=== PATIENT | male | born 1930 | race Caucasian/White ===

== ENCOUNTER 2017-01-19 12:45 | Observation (INO) | payer MEDICARE, OTHER ==
--- NOTE | 2017-01-19 12:57 | EDM.PDOC ---
ED HPI GENERAL MEDICAL PROBLEM - General Chief Complaint: Chest Pain Stated Complaint: chest pain Time Seen by Provider: 01/19/17 12:45 Source of Information: Reports: Patient, Long-Term Records History Limitations: Reports: No Limitations - History of Present Illness INITIAL COMMENTS - FREE TEXT/NARRATIVE: 86 YO WM presents to ER from assisted living facility with complaints of 2 day history of intermittent chest pain. Pt reports he currently is with chest pain but woke this am with approximately 4 episodes of diarrhea and feels generally weak. Pt was sent from [facility] for further evaluation and treatment. Pt denies associated shortness of breath, dizziness, nausea/vomiting or diaphoresis. Pt states the chest pain is intermittent and dull in character. Pt reports taking lactulose yesterday which he uses every other day for constipation and had 4 episodes of loose stool. Pt denies any abdominal pain, no fever/chills. Onset Date: 01/16/17 Duration: Day(s): (3) Location: Reports: Chest, Generalized Quality: Reports: Ache Severity: Mild Improves with: Reports: None Worsens with: Reports: None Associated Symptoms: Reports: No Other Symptoms, Chest Pain, Weakness. Denies: Diaphoresis, Fever/Chills, Nausea/Vomiting, Shortness of Breath, Syncope - Related Data Allergies Allergy/AdvReac Type Severity Reaction Status Date / Time corn Allergy Cough Verified 01/19/17 13:31 tramadol Allergy Diarrhea Verified 01/19/17 13:31 Home Meds: Home Meds Doxazosin [Cardura] 2 mg PO DAILY 04/14/15 [History] Acetaminophen [Tylenol] 325 - 650 mg PO TID PRN 12/10/15 [History] Albuterol [Proventil Neb Soln] 2.5 mg NEB QIDRT PRN 12/10/15 [History] Albuterol/Ipratropium [DuoNeb 3.0-0.5 MG/3 ML] 3 ml NEB Q6HRRT PRN 12/10/15 [ History] Bisacodyl [Dulcolax] 1 supp RECTAL DAILY PRN 12/10/15 [History] Clopidogrel [Plavix] 75 mg PO DAILY 12/10/15 [History] Cranberry 1 tab PO BEDTIME 12/10/15 [History] Denosumab [Prolia] 60 mg SUBCUT ASDIRECTED 12/10/15 [History] Docusate Sodium [Colace] 100 mg PO BID 12/10/15 [History] Esomeprazole [NexIUM] 40 mg PO DAILY 12/10/15 [History] Furosemide 40 mg PO DAILY 12/10/15 [History] Gabapentin [Neurontin] 600 mg PO BEDTIME 12/10/15 [History] Hydrocodone/Acetaminophen [Hydrocodon-Acetaminophen 5-325] 0.5 tab PO BID PRN [History] Isosorbide Mononitrate [Isosorbide Mononitrate ER] 30 mg PO DAILY 12/10/15 [ History] Lactulose 15 ml PO BID PRN 12/10/15 [History] Mag Hydrox/Al Hydrox/Simeth [Gelusil Tablet Chewable] 2 each PO TID PRN [History] Magnesium Hydroxide [Milk of Magnesia] 15 ml PO TID PRN 12/10/15 [History] Melatonin/Pyridoxine HCl (B6) [Melatonin 5 mg Tablet] 5 - 10 mg PO BEDTIME 12/09 [History] Metoprolol Succinate [Toprol XL 50mg] 25 mg PO DAILY 12/10/15 [History] Multivits,Ca,Minerals/Iron/FA [Thera-M] 1 tab PO DAILY 12/10/15 [History] Nitroglycerin [Nitrostat] 1 tab SL Q5M PRN 12/10/15 [History] Ondansetron [Zofran ODT] 4 mg PO TID PRN 12/10/15 [History] Potassium Chloride 10 meq PO DAILY 12/10/15 [History] Rivaroxaban [Xarelto] 15 mg PO 1800 12/10/15 [History] Simethicone 125 mg PO QID PRN 12/10/15 [History] atorvaSTATin [Lipitor] 40 mg PO BEDTIME 12/10/15 [History] Diclofenac Sodium [Voltaren] 75 mg PO BIDMEALS 04/28/16 [History] Misoprostol [Cytotec] 200 mcg PO BIDMEALS 04/28/16 [History] Prednisone [IMW: predniSONE] 20 mg PO WITHBREAKFAST #15 tab 04/28/16 [Rx] Past Medical History HEENT History: Reports: Hard of Hearing Other HEENT History: chronic nasal congestion Cardiovascular History: Reports: Afib, Heart Failure, Hypertension, [place] Respiratory History: Reports: Other (See Below) Other Respiratory History: uses o2 at night at home/ Gastrointestinal History: Reports: Chronic Constipation Genitourinary History: Reports: Chronic Renal Insuffiency Other Genitourinary History: CKD stage 3 Other Neuro History: / Endocrine/Metabolic History: Reports: Diabetes, Type II Other Dermatologic History: / - Past Surgical History Cardiovascular Surgical History: Reports: Coronary Artery Stent Social & Family History - Tobacco Use Smoking Status *Q: Never Smoker Second Hand Smoke Exposure: No - Caffeine Use Caffeine Use: Reports: Coffee, Soda, Tea - Alcohol Use Days Per Week of Alcohol Use: 0 Number of Drinks Per Day: 0 Total Drinks Per Week: 0 - Recreational Drug Use Recreational Drug Use: No Drug Use in Last 12 Months: No - Living Situation & Occupation Living situation: Reports: Assisted Living Occupation: Retired ED ROS GENERAL - Review of Systems Review Of Systems: See Below Constitutional: Reports: No Symptoms HEENT: Reports: No Symptoms Respiratory: Reports: No Symptoms Cardiovascular: Reports: Chest Pain Endocrine: Reports: No Symptoms GI/Abdominal: Reports: Diarrhea. Denies: Abdominal Pain, Hematemesis, Hematochezia, Melena, Nausea : Reports: No Symptoms Musculoskeletal: Reports: No Symptoms Skin: Reports: No Symptoms Neurological: Reports: No Symptoms Psychiatric: Reports: No Symptoms Hematologic/Lymphatic: Reports: No Symptoms Immunologic: Reports: No Symptoms ED EXAM, GENERAL - Physical Exam Exam: See Below Exam Limited By: No Limitations General Appearance: Alert, WD/WN, No Apparent Distress Nose: Normal Inspection, Normal Mucosa, No Blood Throat/Mouth: Normal Inspection, Normal Lips, Normal Teeth, Normal Gums, Normal Oropharynx, Normal Voice, No Airway Compromise Head: Atraumatic, Normocephalic Neck: Normal Inspection, Supple, Non-Tender, Full Range of Motion Respiratory/Chest: No Respiratory Distress, Lungs Clear, Normal Breath Sounds, No Accessory Muscle Use, Chest Non-Tender Cardiovascular: Normal Peripheral Pulses, No Edema, No Gallop, No JVD, No Murmur , No Rub, Irregularly Irregular GI/Abdominal: Normal Bowel Sounds, Soft, Non-Tender, No Organomegaly, No Distention, No Abnormal Bruit, No Mass Back Exam: Normal Inspection, Full Range of Motion, NT Extremities: Normal Inspection, Normal Range of Motion, Non-Tender, Normal Capillary Refill, No Pedal Edema Neurological: Alert, Oriented, CN II-XII Intact, Normal Cognition, Normal Gait, Normal Reflexes, No Motor/Sensory Deficits Psychiatric: Normal Affect, Normal Mood Skin Exam: Warm, Dry, Intact, Normal Color, No Rash Lymphatic: No Adenopathy EKG INTERPRETATION EKG Date: 01/19/17 Time: 13:05 Rhythm: A-Fib Rate (Beats/Min): 98 [place]: LAD-Left [place] Deviation P-Wave: Absent QRS: Normal ST-T: Normal QT: Normal Comparison: NA - No Prior EKG Course - Vital Signs Last Recorded V/S: Last Vital Signs Temp 37.4 C 01/19/17 13:28 Pulse 105 H 01/19/17 13:28 Resp 18 01/19/17 13:28 BP 113/55 L 01/19/17 13:28 Pulse Ox 91 L 01/19/17 13:28 - Orders/Labs/Meds Orders: Active Orders 24 hr Category Date Time Status EKG Documentation Completion [RC] ASDIRECTED Care 01/19/17 12:56 Active Chest 1V Frontal [CR] Stat Exams 01/19/17 12:55 Taken URINALYSIS W/MICROSCOPIC [UA W/MICROSCOPIC] [URIN] Stat Lab 01/19/17 14:17 Ordered EKG 12 Lead [EK] Routine Ther 01/19/17 12:55 Ordered Labs: Laboratory Tests 01/19/17 01/19/17 01/19/17 Range/Units 13:10 13:10 13:10 WBC 7.7 (5.0-10.0) 10^3/uL RBC 3.98 L (4.50-6.00) 10^6/uL Hgb 12.8 L (13.0-17.0) g/dL Hct 37.3 L (40.0-52.0) % MCV 93.8 H (82.0-92.0) fL MCH 32.2 H (27.0-31.0) pg MCHC 34.3 (32.0-36.0) g/dL RDW 13.0 (11.5-14.5) % Plt Count 144 L (150-300) 10^3/uL MPV 7.8 (7.4-10.4) fL Neut % (Auto) 81.8 H (50.0-70.0) % Lymph % (Auto) 7.9 L (20.0-40.0) % [place] % (Auto) 7.5 (2.0-8.0) % Eos % (Auto) 2.0 (1.0-3.0) % Baso % (Auto) 0.8 (0.0-1.0) % Neut # (Auto) 6.2 (2.5-7.0) 10^3/uL Lymph # (Auto) 0.6 L (1.0-4.0) 10^3/uL [place] # (Auto) 0.6 (0.1-0.8) 10^3/uL Eos # (Auto) 0.2 (0.1-0.3) 10^3/uL Baso # (Auto) 0.1 (0.0-0.1) 10^3/uL PT 11.1 (8.9-11.4) SEC INR 1.1 (0.9-1.1) APTT 23.9 (20.8-31.2) SEC Sodium 140 (136-145) mmol/L Potassium 3.8 (3.3-5.3) mmol/L Chloride 106 (98-115) mmol/L Carbon Dioxide 25.8 (21.0-32.0) mmol/L BUN 29 H (6-25) mg/dL Creatinine 1.37 H (0.51-1.17) mg/dL Est Cr Clr Drug Dosing 42.48 mL/min Estimated GFR (MDRD) 49 mL/min Glucose 184 H (70-110) mg/dL Calcium 10.2 (8.7-10.3) mg/dL Total Bilirubin 0.5 (0.2-1.0) mg/dL AST 27 (15-37) U/L ALT 30 (12-78) U/L Alkaline Phosphatase 106 (46-116) IU/L Creatine Kinase 107 (26-276) U/L CK-MB (CK-2) 2.20 (0.00-4.30) ng/mL Troponin I 0.06 (0.00-0.070) ng/mL B-Natriuretic Peptide 106 H (0-100) pg/mL Total Protein 6.5 (6.4-8.2) g/dL Albumin 3.42 (3.00-4.80) g/dL - Radiology Interpretation Free Text/Narrative:: CXR- NAD Departure - Departure Time of Disposition: 14:29 Disposition: Refer to Observation Condition: Fair Clinical Impression: Weakness Chest pain Qualifiers: Chest pain type: unspecified Qualified Code(s): R07.9 - Chest pain, unspecified Diarrhea Qualifiers: Diarrhea type: unspecified type Qualified Code(s): R19.7 - Diarrhea, unspecified - My Orders Last 24 Hours: My Active Orders 01/19/17 12:55 Chest 1V Frontal [CR] Stat EKG 12 Lead [EK] Routine 01/19/17 12:56 EKG Documentation Completion [RC] ASDIRECTED 01/19/17 14:17 URINALYSIS W/MICROSCOPIC [UA W/MICROSCOPIC] [URIN] Stat - Assessment/Plan Last 24 Hours: My Active Orders 01/19/17 12:55 Chest 1V Frontal [CR] Stat EKG 12 Lead [EK] Routine 01/19/17 12:56 EKG Documentation Completion [RC] ASDIRECTED 01/19/17 14:17 URINALYSIS W/MICROSCOPIC [UA W/MICROSCOPIC] [URIN] Stat Assessment:: 1. chest pain 2. diarrhea 3. generalized weakness Plan: 1. admit for obs- Dr Corine Bailey 2. chest pain rule out 3. check urinalysis 4. supportive care
[2017-01-19] MEDS ORDERED: Sodium Chloride 0.9% 5 ML Syringe FLUSH PRN (14:31)
[2017-01-19] MEDS ORDERED: Aspirin 81 MG Tab.Chew PO ONE (14:39)
[2017-01-19] MEDS ORDERED: Nitroglycerin 2% Oint 1 GM UD Packet TOP PRN (14:39)
[2017-01-19] MEDS ORDERED: Ondansetron 4 MG Tab.DIS PO PRN (17:30)
[2017-01-19] MEDS ORDERED: Albuterol/Ipratropium 3.0-0.5 MG/3 ML Neb Soln NEB PRN (17:30)
[2017-01-19] MEDS ORDERED: Albuterol 0.083% 2.5 MG/3 ML Neb Soln NEB PRN (17:30)
[2017-01-19] MEDS ORDERED: Magnesium Hydroxide 400 MG/5 ML Susp 30 ML Cup PO PRN (17:30)
[2017-01-19] MEDS ORDERED: Bisacodyl 10 MG Supp RECTAL PRN (17:30)
[2017-01-19] MEDS ORDERED: Acetaminophen/HYDROcodone 325-5 MG Tab PO PRN (17:30)
[2017-01-19] MEDS ORDERED: Acetaminophen 325 MG Tab PO PRN (17:46)
[2017-01-19] MEDS ORDERED: Aluminum Hydroxide/Magnesium Hydroxide/Simethicone Susp 30 ML Cup PO PRN (17:55)
[2017-01-19] MEDS ORDERED: Rivaroxaban 10 MG Tab PO SCH (18:00)
[2017-01-19] MEDS ORDERED: Lactulose Soln 10 GM/15 ML 30 ML UD Cup PO PRN (18:00)
[2017-01-19] MEDS ORDERED: Simethicone 80 MG Tab.Chew PO PRN (18:00)
[2017-01-19] MEDS ORDERED: Dextrose 5%-0.45% NaCl 1,000 ML IV SCH (18:15)
[2017-01-19] MEDS ORDERED: Gabapentin 300 MG Cap PO SCH (21:00)
[2017-01-19] MEDS: Docusate Sodium 100 MG Cap PO SCH (21:06)
[2017-01-20 05:56] VITALS: BP 125/71
[2017-01-20] MEDS ORDERED: Omeprazole 20 MG Cap.CR PO SCH (07:00)
[2017-01-20] MEDS ORDERED: Esomeprazole 40 MG Cap PO SCH (07:00)
[2017-01-20] MEDS: Docusate Sodium 100 MG Cap PO SCH (08:20)
[2017-01-20] MEDS ORDERED: Multivitamins with Minerals/Iron/Folic Acid/Lycopene Tab PO SCH (09:00)
[2017-01-20] MEDS ORDERED: Isosorbide Mononitrate 30 MG Tab.ER PO SCH (09:00)
[2017-01-20] MEDS ORDERED: Potassium Chloride 10 MEQ Tab.ER PO SCH (09:00)
[2017-01-20] MEDS ORDERED: Doxazosin 2 MG Tab PO SCH (09:00)
[2017-01-20] MEDS ORDERED: Metoprolol Succinate 25 MG Tab.ER PO SCH (09:00)
[2017-01-20] MEDS ORDERED: Clopidogrel 75 MG Tab PO SCH (09:00)
--- NOTE | 2017-01-20 09:58 | PCM.HP ---
H&P History of Present Illness - General Date of Service: 01/20/17 Admit Problem/Dx: Admission Diagnosis/Problem Admission Diagnosis/Problem Chest pain Source of Information: Patient, Old Records, Provider, RN History Limitations: Reports: No Limitations - History of Present Illness Initial Comments - Free Text/Narative: This 86-year-old gentleman who lives in assisted living facility was admitted yesterday due to some ongoing chest pains and weakness in which he had quite a bit of diarrhea yesterday. Patient came into the ED due to intermittent chest pain that he had had for about 2 days prior. He had about 4 episodes also of diarrhea and he stated he should drink more water taking his lactulose. He never had nausea or vomiting but he does admit to not drinking enough fluids. He uses lactulose every other day for history of constipation. Patient stated he had 4 episodes of loose stools however he did not have any fever chills or abdominal pain. His workup in the ED demonstrated normal electrolytes however elevation of BUN/ creatinine levels, chronic for him. He had a normal white count, hemoglobin was 12.8, slightly elevated neutrophils however normal today on rounds. He had normal troponin levels and his EKG demonstrates the patient to be in atrial fibrillation he does take factor Xa inhibitor anticoagulation He was admitted observation to monitored telemetry and for gentle IV fluid hydration to rule out for myocardial infarction. Right Shoulder Pain Score (Numeric/FACES): 4 Bilateral Wrist Pain Score (Numeric/FACES): 7 - Related Data Allergies/Adverse Reactions: Allergies Allergy/AdvReac Type Severity Reaction Status Date / Time corn Allergy Cough Verified 01/19/17 13:31 tramadol Allergy Diarrhea Verified 01/19/17 13:31 Home Medications: Home Meds Doxazosin [Cardura] 2 mg PO DAILY 04/14/15 [History] Acetaminophen [Tylenol] 325 - 650 mg PO TID PRN 12/10/15 [History] Albuterol [Proventil Neb Soln] 2.5 mg NEB QIDRT PRN 12/10/15 [History] Albuterol/Ipratropium [DuoNeb 3.0-0.5 MG/3 ML] 3 ml NEB Q6HRRT PRN 12/10/15 [ History] Bisacodyl [Dulcolax] 1 supp RECTAL DAILY PRN 12/10/15 [History] Clopidogrel [Plavix] 75 mg PO DAILY 12/10/15 [History] Denosumab [Prolia] 60 mg SUBCUT ASDIRECTED 12/10/15 [History] Docusate Sodium [Colace] 100 mg PO BID 12/10/15 [History] Esomeprazole [NexIUM] 40 mg PO DAILY 12/10/15 [History] Furosemide 40 mg PO DAILY 12/10/15 [History] Gabapentin [Neurontin] 600 mg PO BEDTIME 12/10/15 [History] Hydrocodone/Acetaminophen [Hydrocodon-Acetaminophen 5-325] 0.5 tab PO BID PRN [History] Isosorbide Mononitrate [Isosorbide Mononitrate ER] 30 mg PO DAILY 12/10/15 [ History] Lactulose 15 ml PO BID PRN 12/10/15 [History] Mag Hydrox/Al Hydrox/Simeth [Gelusil Tablet Chewable] 2 each PO TID PRN [History] Magnesium Hydroxide [Milk of Magnesia] 15 ml PO TID PRN 12/10/15 [History] Melatonin/Pyridoxine HCl (B6) [Melatonin 5 mg Tablet] 5 - 10 mg PO BEDTIME 12/09 [History] Metoprolol Succinate [Toprol XL 50mg] 25 mg PO DAILY 12/10/15 [History] Multivits,Ca,Minerals/Iron/FA [Thera-M] 1 tab PO DAILY 12/10/15 [History] Nitroglycerin [Nitrostat] 0.4 mg SL Q5M PRN 12/10/15 [History] Ondansetron [Zofran ODT] 4 mg PO TID PRN 12/10/15 [History] Potassium Chloride 10 meq PO DAILY 12/10/15 [History] Rivaroxaban [Xarelto] 15 mg PO 1800 12/10/15 [History] Simethicone 125 mg PO QID PRN 12/10/15 [History] atorvaSTATin [Lipitor] 40 mg PO BEDTIME 12/10/15 [History] Past Medical History HEENT History: Reports: Hard of Hearing Other HEENT History: chronic nasal congestion Cardiovascular History: Reports: Afib, Heart Failure, Hypertension, [place] Respiratory History: Reports: Other (See Below) Other Respiratory History: uses o2 at night at home/ Gastrointestinal History: Reports: Chronic Constipation Genitourinary History: Reports: Chronic Renal Insuffiency Other Genitourinary History: CKD stage 3 Musculoskeletal History: Reports: Arthritis Other Neuro History: / Endocrine/Metabolic History: Reports: Diabetes, Type II Oncologic (Cancer) History: Reports: Prostate Other Dermatologic History: / - Past Surgical History Cardiovascular Surgical History: Reports: Coronary Artery Stent Social & Family History - Tobacco Use Smoking Status *Q: Never Smoker Second Hand Smoke Exposure: No - Caffeine Use Caffeine Use: Reports: Coffee, Soda, Tea - Alcohol Use Days Per Week of Alcohol Use: 0 Number of Drinks Per Day: 0 Total Drinks Per Week: 0 - Recreational Drug Use Recreational Drug Use: No Drug Use in Last 12 Months: No - Living Situation & Occupation Living situation: Reports: Assisted Living Occupation: Retired H&P Review of Systems - Review of Systems: Review Of Systems: See Below General: Denies: Fever, Chills, Malaise, Weakness, Fatigue, Decreased Appetite HEENT: Reports: No Symptoms Pulmonary: Reports: No Symptoms Cardiovascular: Reports: No Symptoms Gastrointestinal: Denies: Black Stool, Diarrhea, Decreased Appetite Genitourinary: Reports: No Symptoms Musculoskeletal: Reports: No Symptoms Skin: Reports: No Symptoms Psychiatric: Reports: No Symptoms Neurological: Reports: No Symptoms Hematologic/Lymphatic: Reports: Easy Bleeding Exam - Exam Exam: See Below - Vital Signs Vital Signs: Last Vital Signs Temp 97.3 F 01/20/17 05:53 Pulse 64 01/20/17 08:18 Resp 18 01/20/17 05:53 BP 125/71 01/20/17 08:19 Pulse Ox 98 01/20/17 06:55 Weight: 197 lb - Exam Quality Assessment: No: Supplemental Oxygen General: Alert, Oriented, 4 HEENT: Mucosa Moist & [place] Neck: Supple, Trachea Midline, 2 Lungs: Clear to Auscultation, Normal Respiratory Effort Cardiovascular: Irregular Rhythm GI/Abdominal Exam: Normal Bowel Sounds, Soft, Non-Tender, No Organomegaly, No Distention, No Abnormal Bruit, No Mass, Pelvis Stable Neurological: Cranial Nerves Intact, Reflexes Equal Bilateral Neuro Extensive - Mental Status: Alert, Oriented x3, Normal Mood/Affect, Normal Cognition Neuro Extensive - Motor, Sensory, Reflexes: CN II-XII Intact, Normal Gait, Normal Reflexes Psychiatric: Alert, Normal Affect, Normal Mood - Patient Data Lab Results Last 24 hrs: Laboratory Results - last 24 hr 08/14/17 08/15/17 08/15/17 Range/Units 18:30 07:15 07:15 WBC 5.7 (5.0-10.0) 10^3/uL RBC 3.76 L (4.50-6.00) 10^6/uL Hgb 11.6 L (13.0-17.0) g/dL Hct 35.2 L (40.0-52.0) % MCV 93.8 H (82.0-92.0) fL MCH 30.9 (27.0-31.0) pg MCHC 32.9 (32.0-36.0) g/dL RDW 13.3 (11.5-14.5) % Plt Count 131 L (150-300) 10^3/uL MPV 7.7 (7.4-10.4) fL Neut % (Auto) 64.7 (50.0-70.0) % Lymph % (Auto) 17.4 L (20.0-40.0) % [place] % (Auto) 11.7 H (2.0-8.0) % Eos % (Auto) 6.1 H (1.0-3.0) % Baso % (Auto) 0.1 (0.0-1.0) % Neut # (Auto) 3.7 (2.5-7.0) 10^3/uL Lymph # (Auto) 1.0 (1.0-4.0) 10^3/uL [place] # (Auto) 0.7 (0.1-0.8) 10^3/uL Eos # (Auto) 0.3 (0.1-0.3) 10^3/uL Baso # (Auto) 0.0 (0.0-0.1) 10^3/uL Sodium 141 (136-145) mmol/L Potassium 3.8 (3.3-5.3) mmol/L Chloride 107 (98-115) mmol/L Carbon Dioxide 27.3 (21.0-32.0) mmol/L BUN 23 (6-25) mg/dL Creatinine 1.35 H (0.51-1.17) mg/dL Est Cr Clr Drug Dosing 43.11 mL/min Estimated GFR (MDRD) 50 mL/min Glucose 120 H (70-110) mg/dL Calcium 9.9 (8.7-10.3) mg/dL Troponin I 0.07 0.06 (0.00-0.070) ng/mL Result Diagrams: 01/20/17 07:15 01/20/17 07:15 *Q Meaningful Use (ADM) - VTE *Q VTE Criteria *Q: - Stroke *Q Stroke Criteria *Q: - AMI *Q AMI Criteria *Q: Problem List Initiated/Reviewed/Updated: Yes Orders Last 24hrs: Active Orders 24 hr Category Date Time Status Patient Status [ADT] Routine ADT 01/19/17 14:31 Ordered Bedrest Bathroom Privileges [RC] ASDIRECTED Care 01/19/17 14:31 Active Cardiac Monitoring [RC] CONTINUOUS Care 01/19/17 14:32 Active Oxygen Therapy [RC] PRN Care 01/19/17 14:31 Active Peripheral IV Care [RC] . DIRECTED Care 01/19/17 14:33 Active Pulse Oximetry [RC] CONTINUOUS Care 01/19/17 14:32 Active VTE/DVT Education [RC] PER UNIT ROUTINE Care 01/19/17 14:31 Active Vital Signs [RC] Q4H Care 01/19/17 14:31 Active 2 Gram Sodium Diet [DIET] Diet 01/19/17 Dinner Active Acetaminophen [Tylenol] Med 01/19/17 17:46 Active 650 mg PO Q8H PRN Acetaminophen/HYDROcodone [[place] 325-5 MG] Med 01/19/17 17:30 Active 0.5 tab PO BID PRN Albuterol [Proventil Neb Soln] Med 01/19/17 17:30 Active 2.5 mg NEB QIDRT PRN Albuterol/Ipratropium [DuoNeb 3.0-0.5 MG/3 ML] Med 01/19/17 17:30 Active 3 ml NEB Q6HRRT PRN Alum Hydrox/Mag Hydrox/Simeth [Mag-Al Plus] Med 01/19/17 17:55 Active 30 ml PO TID PRN Bisacodyl [Dulcolax] Med 01/19/17 17:30 Active 10 mg RECTAL DAILY PRN Clopidogrel [Plavix] Med 01/20/17 09:00 Active 75 mg PO DAILY Dextrose 5%-0.45% NaCl [Dextrose 5%-1/2 NS] 1,000 ml Med 01/19/17 18:15 Active IV ASDIRECTED Docusate Sodium [Colace] Med 01/19/17 21:00 Active 100 mg PO BID Doxazosin [Cardura] Med 01/20/17 09:00 Active 2 mg PO DAILY FA/Lycopene/Lut/MV,Ca,Iron,Min [Centrum] Med 01/20/17 09:00 Active 1 tab PO DAILY Gabapentin [Neurontin] Med 01/19/17 21:00 Active 600 mg PO BEDTIME Isosorbide Mononitrate [Imdur] Med 01/20/17 09:00 Active 30 mg PO DAILY Lactulose [Cephulac] Med 01/19/17 18:00 Active 10 gm PO BID PRN Magnesium Hydroxide [Milk of Magnesia] Med 01/19/17 17:30 Active 15 ml PO TID PRN Metoprolol Succinate [Toprol XL] Med 01/20/17 09:00 Active 25 mg PO DAILY Nitroglycerin [Nitro-Bid 2%] Med 01/19/17 14:39 Active 1 gm TOP Q6H PRN Omeprazole Med 01/20/17 07:00 Active 20 mg PO ACBREAKFAST Ondansetron [Zofran ODT] Med 01/19/17 17:30 Active 4 mg PO TID PRN Potassium Chloride [Klor-Con 10] Med 01/20/17 09:00 Active 10 meq PO DAILY Rivaroxaban [Xarelto] Med 01/19/17 18:00 Active 15 mg PO DAILY@1800 Simethicone Med 01/19/17 18:00 Active 120 mg PO QID PRN Sodium Chloride 0.9% [Syrex Flush] Med 01/19/17 14:31 Active 5 ml FLUSH Q8HR PRN Peripheral IV Insertion Adult [OM.PC] Routine Oth 01/19/17 14:31 Ordered Resuscitation Status Routine Resus Stat 01/19/17 14:31 Ordered Medication Orders Acetaminophen (Tylenol) 650 mg PO Q8H PRN PRN Reason: Abdominal Pain Last Admin: 01/19/17 21:14 Dose: 650 mg Hydrocodone Bitart/Acetaminophen ([place] 325-5 Mg) 0.5 tab PO BID PRN PRN Reason: Pain Al Hydroxide/Mg Hydroxide (Mag-Al Plus) 30 ml PO TID PRN PRN Reason: Gas Albuterol (Proventil Neb Soln) 2.5 mg NEB QIDRT PRN PRN Reason: Wheezing Albuterol/Ipratropium (Duoneb 3.0-0.5 Mg/3 Ml) 3 ml NEB Q6HRRT PRN PRN Reason: Wheezing Last Admin: 01/19/17 21:03 Dose: 3 ml Bisacodyl (Dulcolax) 10 mg RECTAL DAILY PRN PRN Reason: Constipation Clopidogrel Bisulfate (Plavix) 75 mg PO DAILY [facility] Last Admin: 01/20/17 08:17 Dose: 75 mg Docusate Sodium (Colace) 100 mg PO BID [facility] Last Admin: 01/20/17 08:20 Dose: 100 mg Admin: 01/19/17 21:06 Dose: Doxazosin Mesylate (Cardura) 2 mg PO DAILY [facility] Last Admin: 01/20/17 08:16 Dose: 2 mg Gabapentin (Neurontin) 600 mg PO BEDTIME [facility] Last Admin: 01/19/17 21:06 Dose: 600 mg Dextrose/Sodium Chloride (Dextrose 5%-1/2 Ns) 1,000 mls @ 50 mls/hr IV ASDIRECTED [facility] Last Admin: 01/19/17 18:55 Dose: 50 mls/hr Isosorbide Mononitrate (Imdur) 30 mg PO DAILY [facility] Last Admin: 01/20/17 08:19 Dose: 30 mg Lactulose (Cephulac) 10 gm PO BID PRN PRN Reason: CONSTIPATION Magnesium Hydroxide (Milk Of Magnesia) 15 ml PO TID PRN PRN Reason: Constipation Metoprolol Succinate (Toprol Xl) 25 mg PO DAILY [facility] Last Admin: 01/20/17 08:18 Dose: 25 mg Multivitamins/Minerals (Centrum) 1 tab PO DAILY [facility] Last Admin: 01/20/17 08:16 Dose: 1 tab Nitroglycerin (Nitro-Bid 2%) 1 gm TOP Q6H PRN PRN Reason: Chest Pain Last Admin: 01/19/17 15:15 Dose: 1 gm Omeprazole (Omeprazole) 20 mg PO ACBREAKFAST [facility] Last Admin: 01/20/17 06:42 Dose: 20 mg Ondansetron HCl (Zofran Odt) 4 mg PO TID PRN PRN Reason: Nausea Potassium Chloride (Klor-Con 10) 10 meq PO DAILY [facility] Last Admin: 01/20/17 08:18 Dose: 10 meq Rivaroxaban (Xarelto) 15 mg PO DAILY@1800 [facility] Last Admin: 01/19/17 19:01 Dose: 15 mg Simethicone (Simethicone) 120 mg PO QID PRN PRN Reason: GAS Sodium Chloride (Syrex Flush) 5 ml FLUSH Q8HR PRN PRN Reason: Keep Vein Open Assessment/Plan Comment:: HISTORY OF PRESENT ILLNESS This 86-year-old gentleman who lives in assisted living facility was admitted yesterday due to some ongoing chest pains and weakness in which he had quite a bit of diarrhea yesterday. Patient came into the ED due to intermittent chest pain that he had had for about 2 days prior. He had about 4 episodes also of diarrhea and he stated he should drink more water taking his lactulose. He never had nausea or vomiting but he does admit to not drinking enough fluids. He uses lactulose every other day for history of constipation. Patient stated he had 4 episodes of loose stools however he did not have any fever chills or abdominal pain. His workup in the ED demonstrated normal electrolytes however elevation of BUN/ creatinine levels, chronic for him. He had a normal white count, hemoglobin was 12.8, slightly elevated neutrophils however normal today on rounds. He had normal troponin levels and his EKG demonstrates the patient to be in atrial fibrillation he does take factor Xa inhibitor anticoagulation He was admitted observation to monitored telemetry and for gentle IV fluid hydration to rule out for myocardial infarction. Impression Rule out myocardial infarction, this has been ruled out Dehydration, improved Lactulose-induced diarrhea, Patient desires to go home, refuses to stay, patient will be discharged back to assisted living facility see discharge summary for complete plan
--- NOTE | 2017-01-21 08:10 | DISCH ---
FINAL DIAGNOSES: 1. Dehydration, resolved. 2. Weakness, much improved. 3. Diarrhea, resolved. 4. Rule out myocardial infarction, this has been ruled out. BRIEF HISTORY: This 86-year-old gentleman who lives in assisted living facility was admitted in the hospital less than 24 hours due to some ongoing chest pain and weakness in which he had quite a bit of diarrhea the day prior to coming in. When he came into the ED, he had intermittent chest pain that he was complaining about for about two days prior. He also had about four episodes of diarrhea in which he stated he admitted not taking the fluids when he was taking his lactulose. He does take lactulose as needed for history of constipation. He did not have any nausea or vomiting. He states he uses lactulose about every other day for constipation as needed. He had four loose stools. He never had any fever, chills, or any abdominal pain. His workup in the ED demonstrated normal electrolytes, however, elevation of BUN and creatinine levels which are chronic for him. He had a normal white count, hemoglobin was 12.8. He had a slightly elevated neutrophils, however, on the next morning, they were normal. He had normal troponin level, serialized. His EKG showed atrial fibrillation with a fairly controlled rate under 100. He does take a factor Xa inhibitor anticoagulation, so he was admitted in observation and monitored for telemetry, he had some gentle IV fluids to rule out any myocardial infarction. HOSPITAL COURSE: Hospital course went well. He had no aberrancy on EKG. He remained on telemetry with a fairly good rate control, he continued with Xarelto. He never had any more diarrhea. He was given some gentle fluids. He was euvolemic on discharge. We continue with a low-sodium diet. On rounds the next morning, he felt he was ready to go. His lungs were clear to auscultation. CV was irregular. No murmur. He had no edema, and he had good bowel tones. He had no bloody stools. He no longer had any chest pain, and he was walking around. LABORATORY DATA: On admission, white count 7.7, on discharge 5.7, hemoglobin discharge 11.6, hematocrit 35.2, percentage of neutrophils now normal at less than 70. Sodium and potassium are normal. BUN 23, creatinine 1.35, this is chronic for him. GFR 50, glucose 120, calcium 9.9. He had a troponin negative x3. BNP 106, albumin good at 3.4. Urinalysis showed just few bacteria, however, otherwise unremarkable. MICROBIOLOGY REPORT: None. VITAL SIGNS ON DISCHARGE: Blood pressure 125/71, heart rate 64 and irregular, O2 sats 98%. DISPOSITION: The patient desired to go back to assisted living facility. He was instructed to stay well hydrated, lactulose only as needed. Report any ongoing chest pain. He can continue with his Imdur. He is also on nitroglycerin as needed. He will be discharged today. He will follow up next week early with either myself or with one of the other [facility] providers. MEDICATION: There have been no medication adjustments. He can continue with his home medications. MEDICAL DECISION MAKIN minutes was spent on this discharge planning and process. /[id number]/MODL
== END 2017-01-20 10:30 | disposition home or self-care (01) ==
LOC: KA.ED 12:45 → KA.MS 14:30
PROVIDERS: ADMIT Physician Assistant Medical; ATTEND Family Medicine
DX: E86.0 Dehydration (principal); R53.1 Weakness; R19.7 Diarrhea, unspecified; E11.22 Type 2 diabetes mellitus with diabetic chronic kidney disease; I13.0 Hypertensive heart and chronic kidney disease with heart failure and stage 1 through stage 4 chronic kidney disease, or unspecified chronic kidney disease; N18.3 Chronic kidney disease, stage 3 (moderate); Z95.5 Presence of coronary angioplasty implant and graft; Z88.8 Allergy status to other drugs, medicaments and biological substances; Z91.018 Allergy to other foods; Z79.899 Other long term (current) drug therapy
CPT/HCPCS: 36415; 71010; 80048; 80053; 81001; 82550; 82553; 83880; 84484; 85025; 85610; 85730; 99285; A9270; G0378; J7042; 93005; 99284

== ENCOUNTER 2017-07-17 04:17 | Emergency (ER) | payer MEDICARE, OTHER ==
[2017-07-17 05:06] VITALS: BP 119/91
--- NOTE | 2017-07-17 05:16 | EDM.PDOC ---
ED HPI GENERAL MEDICAL PROBLEM - General Chief Complaint: General Stated Complaint: L Shoulder pain Time Seen by Provider: 07/17/17 04:59 Source of Information: Reports: Patient History Limitations: Reports: No Limitations - History of Present Illness INITIAL COMMENTS - FREE TEXT/NARRATIVE: 86 YO WM presents to ER by EMS due to left shoulder pain. Pt reports he takes 0.5 tablet of hydrocodone for pain every night at 10:30 and will typically fall asleep. Pt reports last night after taking medication he was unable to sleep due to left shoulder pain prompting him to call EMS. Pt reports he became concerned that this pain could be related to his heart. Pt denies any chest pain , shortness of breath, dizziness or diaphoresis. Pt states as soon as he called EMS his pain improved. Duration: Chronic Location: Reports: Upper Extremity, Left Severity: Moderate Improves with: Reports: Rest Worsens with: Reports: Movement Associated Symptoms: Reports: No Other Symptoms. Denies: Chest Pain, Nausea/ Vomiting, Shortness of Breath, Syncope - Related Data Allergies Allergy/AdvReac Type Severity Reaction Status Date / Time corn Allergy Cough Verified 07/17/17 04:27 tramadol Allergy Diarrhea Verified 07/17/17 04:27 Home Meds: Home Meds Doxazosin [Cardura] 2 mg PO DAILY 04/14/15 [History] Acetaminophen [Tylenol] 325 - 650 mg PO TID PRN 12/10/15 [History] Albuterol [Proventil Neb Soln] 2.5 mg NEB QIDRT PRN 12/10/15 [History] Albuterol/Ipratropium [DuoNeb 3.0-0.5 MG/3 ML] 3 ml NEB Q6HRRT PRN 12/10/15 [ History] Bisacodyl [Dulcolax] 1 supp RECTAL DAILY PRN 12/10/15 [History] Clopidogrel [Plavix] 75 mg PO DAILY 12/10/15 [History] Denosumab [Prolia] 60 mg SUBCUT ASDIRECTED 12/10/15 [History] Docusate Sodium [Colace] 100 mg PO BID 12/10/15 [History] Esomeprazole [NexIUM] 40 mg PO DAILY 12/10/15 [History] Furosemide 40 mg PO DAILY 12/10/15 [History] Gabapentin [Neurontin] 600 mg PO BEDTIME 12/10/15 [History] Hydrocodone/Acetaminophen [Hydrocodon-Acetaminophen 5-325] 0.5 tab PO BID PRN [History] Isosorbide Mononitrate [Isosorbide Mononitrate ER] 30 mg PO DAILY 12/10/15 [ History] Lactulose 15 ml PO BID PRN 12/10/15 [History] Mag Hydrox/Al Hydrox/Simeth [Gelusil Tablet Chewable] 2 each PO TID PRN [History] Magnesium Hydroxide [Milk of Magnesia] 15 ml PO TID PRN 12/10/15 [History] Melatonin/Pyridoxine HCl (B6) [Melatonin 5 mg Tablet] 5 - 10 mg PO BEDTIME 12/09 [History] Metoprolol Succinate [Toprol XL 50mg] 25 mg PO DAILY 12/10/15 [History] Multivits,Ca,Minerals/Iron/FA [Thera-M] 1 tab PO DAILY 12/10/15 [History] Nitroglycerin [Nitrostat] 0.4 mg SL Q5M PRN 12/10/15 [History] Ondansetron [Zofran ODT] 4 mg PO TID PRN 12/10/15 [History] Potassium Chloride 10 meq PO DAILY 12/10/15 [History] Rivaroxaban [Xarelto] 15 mg PO 1800 12/10/15 [History] Simethicone 125 mg PO QID PRN 12/10/15 [History] atorvaSTATin [Lipitor] 40 mg PO BEDTIME 12/10/15 [History] Past Medical History HEENT History: Reports: Hard of Hearing Other HEENT History: chronic nasal congestion Cardiovascular History: Reports: Afib, Heart Failure, Hypertension, [place] Respiratory History: Reports: Other (See Below) Other Respiratory History: uses o2 at night at home/ Gastrointestinal History: Reports: Chronic Constipation Genitourinary History: Reports: Chronic Renal Insuffiency Other Genitourinary History: CKD stage 3 Musculoskeletal History: Reports: Arthritis Other Neuro History: / Endocrine/Metabolic History: Reports: Diabetes, Type II Oncologic (Cancer) History: Reports: Prostate Other Dermatologic History: / - Past Surgical History Cardiovascular Surgical History: Reports: Coronary Artery Stent Social & Family History - Tobacco Use Smoking Status *Q: Never Smoker Second Hand Smoke Exposure: No - Caffeine Use Caffeine Use: Reports: Coffee, Soda, Tea - Alcohol Use Days Per Week of Alcohol Use: 0 Number of Drinks Per Day: 0 Total Drinks Per Week: 0 - Recreational Drug Use Recreational Drug Use: No Drug Use in Last 12 Months: No - Living Situation & Occupation Living situation: Reports: Assisted Living Occupation: Retired ED ROS GENERAL - Review of Systems Review Of Systems: See Below Constitutional: Reports: No Symptoms HEENT: Reports: No Symptoms Respiratory: Reports: No Symptoms Cardiovascular: Reports: No Symptoms Endocrine: Reports: No Symptoms GI/Abdominal: Reports: No Symptoms : Reports: No Symptoms Musculoskeletal: Reports: Shoulder Pain Skin: Reports: No Symptoms Neurological: Reports: No Symptoms Psychiatric: Reports: No Symptoms Hematologic/Lymphatic: Reports: No Symptoms Immunologic: Reports: No Symptoms ED EXAM, GENERAL - Physical Exam Exam: See Below Exam Limited By: No Limitations General Appearance: Alert, WD/WN, No Apparent Distress Throat/Mouth: Normal Inspection, Normal Lips, Normal Teeth, Normal Gums, Normal Oropharynx, Normal Voice, No Airway Compromise Head: Atraumatic, Normocephalic Neck: Normal Inspection, Supple, Non-Tender, Full Range of Motion Respiratory/Chest: No Respiratory Distress, Lungs Clear, Normal Breath Sounds, No Accessory Muscle Use, Chest Non-Tender Cardiovascular: Normal Peripheral Pulses, No Edema, No Gallop, No JVD, No Murmur , No Rub, Irregularly Irregular GI/Abdominal: Normal Bowel Sounds, Soft, Non-Tender, No Organomegaly, No Distention, No Abnormal Bruit, No Mass Back Exam: Normal Inspection, Full Range of Motion, NT Extremities: Arm Pain (left shoulder pain) Neurological: Alert, Oriented, CN II-XII Intact, Normal Cognition, Normal Gait, Normal Reflexes, No Motor/Sensory Deficits Psychiatric: Normal Affect, Normal Mood Skin Exam: Warm, Dry, Intact, Normal Color, No Rash Lymphatic: No Adenopathy EKG INTERPRETATION EKG Date: 07/17/17 Time: 04:55 Rhythm: A-Fib Rate (Beats/Min): 76 Golden: Normal P-Wave: Absent QRS: Normal ST-T: Normal QT: Normal Comparison: No Change Course - Vital Signs Last Recorded V/S: Last Vital Signs Temp 36.6 C 07/17/17 04:33 Pulse 76 07/17/17 04:33 Resp 20 07/17/17 04:33 BP 107/59 L 07/17/17 04:33 Pulse Ox 95 07/17/17 04:33 - Orders/Labs/Meds Orders: Active Orders 24 hr Category Date Time Status EKG Documentation Completion [RC] ASDIRECTED Care 07/17/17 04:44 Active EKG 12 Lead [EK] Routine Ther 07/17/17 04:43 Ordered Departure - Departure Time of Disposition: 05:20 Disposition: Home, Self-Care 01 Condition: Good Clinical Impression: Chronic left shoulder pain - Discharge Information Instructions: Shoulder Pain Referrals: Chanda Bailey MD [Primary Care Provider] - - My Orders Last 24 Hours: My Active Orders 07/17/17 04:43 EKG 12 Lead [EK] Routine 07/17/17 04:44 EKG Documentation Completion [RC] ASDIRECTED - Assessment/Plan Last 24 Hours: My Active Orders 07/17/17 04:43 EKG 12 Lead [EK] Routine 07/17/17 04:44 EKG Documentation Completion [RC] ASDIRECTED Assessment:: 1. Chronic left shoulder pain Plan: 1. current pain medication schedule is hydrocodone 5/325 0.5 tablet BID PRN- change to 1 tablet Q4-6 hours PRN pain 2. discharge home to assisted living 3. follow up with [facility] this week for further evaluation and treatment
[2017-07-17] MEDS: Acetaminophen/HYDROcodone 325-5 MG Tab PO ONE (05:23)
[2017-07-17] MEDS: Acetaminophen/HYDROcodone 325-5 MG Tab ONE (05:29)
== END 2017-07-17 05:40 | disposition home or self-care (01) ==
LOC: KA.ED 04:17
DX: M25.512 Pain in left shoulder (principal); G89.29 Other chronic pain; I13.0 Hypertensive heart and chronic kidney disease with heart failure and stage 1 through stage 4 chronic kidney disease, or unspecified chronic kidney disease; I50.9 Heart failure, unspecified; N18.3 Chronic kidney disease, stage 3 (moderate); I25.2 Old myocardial infarction; E11.22 Type 2 diabetes mellitus with diabetic chronic kidney disease; I48.91 Unspecified atrial fibrillation; Z88.5 Allergy status to narcotic agent; Z91.018 Allergy to other foods; Z79.899 Other long term (current) drug therapy; Z95.5 Presence of coronary angioplasty implant and graft
CPT/HCPCS: 93005; 99283; A9270-GY

== ENCOUNTER 2017-10-08 16:03 | Inpatient (IN) | payer MEDICARE, OTHER ==
[2017-10-08] MEDS ORDERED: Sodium Chloride 0.9% 5 ML Syringe FLUSH PRN (16:45)
[2017-10-08] MEDS ORDERED: Sodium Chloride 0.9% 1,000 ML IV ONE (16:45)
[2017-10-08] MEDS ORDERED: Acetaminophen 500 MG Tab PO ONE (16:45)
--- NOTE | 2017-10-08 16:54 | EDM.PDOC ---
ED HPI GENERAL MEDICAL PROBLEM - General Chief Complaint: Fever Stated Complaint: SOB Time Seen by Provider: 10/08/17 16:47 Source of Information: Reports: Alf Records History Limitations: Reports: No Limitations - History of Present Illness INITIAL COMMENTS - FREE TEXT/NARRATIVE: Patient 86-year-old gentleman who presents to the emergency department this afternoon from a nursing facility with a complaint of shortness of breath. Patient states that he had felt chills this afternoon and it was difficult to take a deep breath. Patient denies chest pain, nausea, vomiting, diarrhea, or abdominal pain. Patient was found to have 101 temperature and elevated heart rate upon presentation. Onset: Today Severity: Mild Improves with: Reports: None Worsens with: Reports: None Associated Symptoms: Reports: Fever/Chills, Shortness of Breath Treatments REGISTERED ASSOCIATE: Reports: Acetaminophen - Related Data Allergies Allergy/AdvReac Type Severity Reaction Status Date / Time corn Allergy Cough Verified 10/08/17 16:47 tramadol Allergy Diarrhea Verified 10/08/17 16:47 Home Meds: Home Meds Doxazosin [Cardura] 2 mg PO DAILY 04/14/15 [History] Acetaminophen [Tylenol] 325 - 650 mg PO TID PRN 12/10/15 [History] Albuterol [Proventil Neb Soln] 2.5 mg NEB QIDRT PRN 12/10/15 [History] Albuterol/Ipratropium [DuoNeb 3.0-0.5 MG/3 ML] 3 ml NEB Q6HRRT PRN 12/10/15 [ History] Bisacodyl [Dulcolax] 1 supp RECTAL DAILY PRN 12/10/15 [History] Clopidogrel [Plavix] 75 mg PO DAILY 12/10/15 [History] Denosumab [Prolia] 60 mg SUBCUT ASDIRECTED 12/10/15 [History] Docusate Sodium [Colace] 100 mg PO BID 12/10/15 [History] Esomeprazole [NexIUM] 40 mg PO DAILY 12/10/15 [History] Furosemide 40 mg PO DAILY 12/10/15 [History] Gabapentin [Neurontin] 600 mg PO BEDTIME 12/10/15 [History] Hydrocodone/Acetaminophen [Hydrocodon-Acetaminophen 5-325] 0.5 tab PO BID PRN [History] Isosorbide Mononitrate [Isosorbide Mononitrate ER] 30 mg PO DAILY 12/10/15 [ History] Lactulose 15 ml PO BID PRN 12/10/15 [History] Mag Hydrox/Al Hydrox/Simeth [Gelusil Tablet Chewable] 2 each PO TID PRN [History] Magnesium Hydroxide [Milk of Magnesia] 15 ml PO TID PRN 12/10/15 [History] Melatonin/Pyridoxine HCl (B6) [Melatonin 5 mg Tablet] 5 - 10 mg PO BEDTIME 12/09 [History] Metoprolol Succinate [Toprol XL 50mg] 25 mg PO DAILY 12/10/15 [History] Multivits,Ca,Minerals/Iron/FA [Thera-M] 1 tab PO DAILY 12/10/15 [History] Nitroglycerin [Nitrostat] 0.4 mg SL Q5M PRN 12/10/15 [History] Ondansetron [Zofran ODT] 4 mg PO TID PRN 12/10/15 [History] Potassium Chloride 10 meq PO DAILY 12/10/15 [History] Rivaroxaban [Xarelto] 15 mg PO 1800 12/10/15 [History] Simethicone 125 mg PO QID PRN 12/10/15 [History] atorvaSTATin [Lipitor] 40 mg PO BEDTIME 12/10/15 [History] Past Medical History HEENT History: Reports: Hard of Hearing Other HEENT History: chronic nasal congestion Cardiovascular History: Reports: Afib, Heart Failure, Hypertension, [place] Respiratory History: Reports: Other (See Below) Other Respiratory History: uses o2 at night at home/ Gastrointestinal History: Reports: Chronic Constipation Genitourinary History: Reports: Chronic Renal Insuffiency Other Genitourinary History: CKD stage 3 Musculoskeletal History: Reports: Arthritis Other Neuro History: / Endocrine/Metabolic History: Reports: Diabetes, Type II Oncologic (Cancer) History: Reports: Prostate Other Dermatologic History: / - Past Surgical History Cardiovascular Surgical History: Reports: Coronary Artery Stent Social & Family History - Tobacco Use Smoking Status *Q: Never Smoker Second Hand Smoke Exposure: No - Caffeine Use Caffeine Use: Reports: Coffee, Soda, Tea - Alcohol Use Days Per Week of Alcohol Use: 0 Number of Drinks Per Day: 0 Total Drinks Per Week: 0 - Recreational Drug Use Recreational Drug Use: No Drug Use in Last 12 Months: No - Living Situation & Occupation Living situation: Reports: Assisted Living Occupation: Retired ED ROS GENERAL - Review of Systems Review Of Systems: ROS reveals no pertinent complaints other than HPI. Constitutional: Reports: Chills HEENT: Reports: No Symptoms Respiratory: Reports: Shortness of Breath Cardiovascular: Reports: No Symptoms Endocrine: Reports: No Symptoms GI/Abdominal: Reports: No Symptoms : Reports: Incontinence Musculoskeletal: Reports: No Symptoms Skin: Reports: No Symptoms Neurological: Reports: No Symptoms Psychiatric: Reports: No Symptoms Hematologic/Lymphatic: Reports: No Symptoms Immunologic: Reports: No Symptoms ED EXAM, GENERAL - Physical Exam Exam: See Below Exam Limited By: No Limitations General Appearance: Alert, WD/WN, No Apparent Distress Eye Exam: Bilateral Eye: Normal Inspection Nose: Normal Inspection, Normal Mucosa, No Blood Throat/Mouth: Normal Inspection, Normal Oropharynx, No Airway Compromise Head: Atraumatic, Normocephalic Neck: Normal Inspection, Supple Respiratory/Chest: No Respiratory Distress, No Accessory Muscle Use, Chest Non- Tender, Rales (Bibasilar) Cardiovascular: Tachycardia GI/Abdominal: Normal Bowel Sounds, Soft, Non-Tender Back Exam: Normal Inspection. No: CVA Tenderness (L), CVA Tenderness (R) Extremities: Normal Inspection, No Pedal Edema Neurological: Alert, Oriented, Normal Cognition Psychiatric: Normal Affect, Normal Mood Skin Exam: Warm, Dry, Intact, Normal Color, No Rash Lymphatic: No Adenopathy Course - Orders/Labs/Meds Orders: Active Orders 24 hr Category Date Time Status Peripheral IV Care [RC] . DIRECTED Care 10/08/17 16:46 Ordered Chest 2V [CR] Stat Exams 10/08/17 16:45 Ordered CBC WITH AUTO DIFF [HEME] Stat Lab 10/08/17 16:45 Ordered COMPREHENSIVE METABOLIC PN,CMP [CHEM] Stat Lab 10/08/17 16:45 Ordered CULTURE BLOOD [BC] Stat Lab 10/08/17 16:46 Ordered CULTURE BLOOD [BC] Stat Lab 10/08/17 16:46 Ordered LACTIC ACID [CHEM] Stat Lab 10/08/17 16:45 Ordered UA W/MICROSCOPIC [URIN] Stat Lab 10/08/17 16:45 Ordered Acetaminophen [Tylenol Extra Strength] Med 10/08/17 16:45 Once 500 mg PO ONETIME ONE Sodium Chloride 0.9% @ 999 MLS/HR (1000ml) Med 10/08/17 16:45 Ordered Sodium Chloride 0.9% [Normal Saline] 1,000 ml IV .BOLUS Sodium Chloride 0.9% [Syrex Flush] Med 10/08/17 16:45 Ordered 5 ml FLUSH Q8HR PRN Blood Culture x2 Reflex Set [OM.PC] Stat Oth 10/08/17 16:45 Ordered Peripheral IV Insertion Adult [OM.PC] Routine Oth 10/08/17 16:45 Ordered - Radiology Interpretation Free Text/Narrative:: Chest x-ray shows right lower lobe infiltrate. - Re-Assessments/Exams Free Text/Narrative Re-Assessment/Exam: 10/08/17 18:22 Patient now afebrile, nontoxic appearing, vital signs stable. Patient given Rocephin 1 g IV, and 500 mg Zithromax by mouth. Case discussed with Dr. Pool, and patient will be admitted inpatient and followed by him. Departure - Departure Time of Disposition: 18:21 Disposition: Admitted As Inpatient 66 Condition: Fair Clinical Impression: Pneumonia Qualifiers: Pneumonia type: due to unspecified organism Laterality: right Lung location: lower lobe of lung Qualified Code(s): J18.1 - Lobar pneumonia, unspecified organism - Discharge Information Referrals: Chanda Bailey MD [Primary Care Provider] - Forms: ED Department Discharge - My Orders Last 24 Hours: My Active Orders 10/08/17 16:45 Chest 2V [CR] Stat CBC WITH AUTO DIFF [HEME] Stat COMPREHENSIVE METABOLIC PN,CMP [CHEM] Stat LACTIC ACID [CHEM] Stat UA W/MICROSCOPIC [URIN] Stat Acetaminophen [Tylenol Extra Strength] 500 mg PO ONETIME ONE Sodium Chloride 0.9% @ 999 MLS/HR (1000ml) Sodium Chloride 0.9% [Normal Saline] 1,000 ml IV .BOLUS Sodium Chloride 0.9% [Syrex Flush] 5 ml FLUSH Q8HR PRN Blood Culture x2 Reflex Set [OM.PC] Stat Peripheral IV Insertion Adult [OM.PC] Routine 10/08/17 16:46 Peripheral IV Care [RC] . DIRECTED CULTURE BLOOD [BC] Stat CULTURE BLOOD [BC] Stat - Assessment/Plan Last 24 Hours: My Active Orders 10/08/17 16:45 Chest 2V [CR] Stat CBC WITH AUTO DIFF [HEME] Stat COMPREHENSIVE METABOLIC PN,CMP [CHEM] Stat LACTIC ACID [CHEM] Stat UA W/MICROSCOPIC [URIN] Stat Acetaminophen [Tylenol Extra Strength] 500 mg PO ONETIME ONE Sodium Chloride 0.9% @ 999 MLS/HR (1000ml) Sodium Chloride 0.9% [Normal Saline] 1,000 ml IV .BOLUS Sodium Chloride 0.9% [Syrex Flush] 5 ml FLUSH Q8HR PRN Blood Culture x2 Reflex Set [OM.PC] Stat Peripheral IV Insertion Adult [OM.PC] Routine 10/08/17 16:46 Peripheral IV Care [RC] . DIRECTED CULTURE BLOOD [BC] Stat CULTURE BLOOD [BC] Stat Assessment:: pneumonia Plan: admit to Dr. Pool
[2017-10-08] MEDS ORDERED: cefTRIAXone 1 GM Vial IVPUSH ONE (17:56)
[2017-10-08] MEDS ORDERED: Azithromycin 250 MG Tab PO ONE (17:56)
[2017-10-08] MEDS ORDERED: LACTULOSE PO PRN (19:50)
[2017-10-08] MEDS ORDERED: Albuterol 0.083% 2.5 MG/3 ML Neb Soln NEB PRN (19:50)
[2017-10-08] MEDS ORDERED: SIMETHICONE PO PRN (19:50)
[2017-10-08] MEDS ORDERED: Non-Formulary Medication 1 Each (Ondansetron 4 MG) PO PRN (19:50)
[2017-10-08] MEDS ORDERED: Magnesium Hydroxide 400 MG/5 ML Susp 30 ML Cup PO PRN (19:50)
[2017-10-08] MEDS ORDERED: [UNRECOGNIZED DRUG - OTHER] PO PRN (19:50)
[2017-10-08] MEDS ORDERED: Non-Formulary Medication 1 Each (Simethicone [Simethicone] 125 MG) PO PRN (19:50)
[2017-10-08] MEDS ORDERED: Nitroglycerin 0.4 MG Tab.SL SL PRN (19:50)
[2017-10-08] MEDS ORDERED: Acetaminophen/HYDROcodone 325-5 MG Tab PO PRN (19:50)
[2017-10-08] MEDS ORDERED: ALUMINUM HYDROXIDE PO PRN (19:50)
[2017-10-08] MEDS ORDERED: Bisacodyl 10 MG Supp RECTAL PRN (19:50)
[2017-10-08] MEDS ORDERED: MAGNESIUM HYDROXIDE PO PRN (19:50)
[2017-10-08] MEDS ORDERED: Acetaminophen 325 MG Tab PO PRN (19:50)
[2017-10-08] MEDS ORDERED: atorvaSTATin 40 MG Tab PO SCH (21:00)
[2017-10-08] MEDS ORDERED: Gabapentin 300 MG Cap PO SCH (21:00)
[2017-10-08] MEDS: Doxazosin 2 MG Tab PO SCH (21:00)
[2017-10-08] MEDS ORDERED: Rivaroxaban 10 MG Tab PO ONE (21:00)
[2017-10-08] MEDS: Docusate Sodium 100 MG Cap PO SCH (21:00)
[2017-10-08] MEDS: Albuterol/Ipratropium 3.0-0.5 MG/3 ML Neb Soln NEB PRN (21:09)
[2017-10-09] MEDS: Albuterol/Ipratropium 3.0-0.5 MG/3 ML Neb Soln NEB PRN (07:01)
[2017-10-09] MEDS: Doxazosin 2 MG Tab PO SCH (08:27)
[2017-10-09] MEDS: Docusate Sodium 100 MG Cap PO SCH (08:29)
[2017-10-09] MEDS ORDERED: Clopidogrel 75 MG Tab PO SCH (09:00)
[2017-10-09] MEDS ORDERED: Potassium Chloride 10 MEQ Tab.ER PO SCH (09:00)
[2017-10-09] MEDS ORDERED: Multivitamins with Minerals/Iron/Folic Acid/Lycopene Tab PO SCH (09:00)
[2017-10-09] MEDS ORDERED: Aluminum Hydroxide/Magnesium Hydroxide/Simethicone Susp 30 ML Cup PO PRN (09:00)
[2017-10-09] MEDS ORDERED: Ondansetron 4 MG Tab.DIS PO PRN (09:00)
[2017-10-09] MEDS ORDERED: Simethicone 80 MG Tab.Chew PO PRN (09:00)
[2017-10-09] MEDS ORDERED: Metoprolol Succinate 25 MG Tab.ER PO SCH (09:00)
[2017-10-09] MEDS ORDERED: Aspirin 81 MG Tab.EC PO SCH (09:00)
[2017-10-09] MEDS ORDERED: Lactulose Soln 10 GM/15 ML 30 ML UD Cup PO PRN (09:00)
[2017-10-09] MEDS ORDERED: [UNRECOGNIZED DRUG - OTHER] PO SCH (09:00)
[2017-10-09] MEDS ORDERED: Esomeprazole 40 MG Cap PO SCH (09:00)
[2017-10-09] MEDS ORDERED: Isosorbide Mononitrate 30 MG Tab.ER PO SCH (09:00)
[2017-10-09] MEDS ORDERED: Omeprazole 20 MG Cap.CR PO SCH (09:00)
[2017-10-09] MEDS ORDERED: Furosemide 40 MG Tab PO SCH (09:00)
[2017-10-09] MEDS ORDERED: Sodium Chloride 0.9% 1,000 ML IV SCH (10:30)
[2017-10-09] MEDS ORDERED: Iopamidol 612 MG/ML 75 ML Bottle IV PRN (10:34)
[2017-10-09] MEDS ORDERED: Sodium Chloride 0.9% 50 ML IV SCH (10:45)
[2017-10-09] MEDS: Piperacillin/Tazobactam/Dext 50 ML IV SCH ×4 (11:22→17:21)
--- NOTE | 2017-10-09 15:29 | PCM.HP ---
H&P History of Present Illness - General Date of Service: 10/09/17 Admit Problem/Dx: Admission Diagnosis/Problem Admission Diagnosis/Problem Pneumonia Source of Information: Patient, Family, Old Records, Provider, RN History Limitations: Reports: No Limitations - History of Present Illness Initial Comments - Free Text/Narative: Mr. Claros reports that over the past few days he "hasn't felt right" and has been weak and felt like he had a fever. He hadn't noted any aggravating or alleviating factors, or any environmental changes lately. He lives at an assisted living, taking his medications without difficulty and without any recent changes, and hasn't noticed any changes in his oral intake. On the evening of 10/08/17, he came into the ED with reported complaint of shortness of breath, but the patient states this morning that he mainly just didn't feel right and continued to have fever and chills. In the ED, he was noted to have a temperature of 101 and CXR with possible RLL infiltrate and he was admitted for pneumonia. This morning, the patient states he has not had any cough lately and no recent URI symptoms. He denies any shortness of breath since admission, but does endorse some RUQ abdominal pain, which he hasn't had in the past. He is unsure of any other symptoms and continues to state that he just "doesn't feel right." I spoke with his son on the phone and he notes no big changes in his father's health lately other than him complaining of being more weak in the past few days. - Related Data Allergies/Adverse Reactions: Allergies Allergy/AdvReac Type Severity Reaction Status Date / Time corn Allergy Cough Verified 10/08/17 16:47 tramadol Allergy Diarrhea Verified 10/08/17 16:47 Home Medications: Home Meds Acetaminophen [Tylenol] 325 - 650 mg PO TID PRN 12/10/15 [History] Albuterol [Proventil Neb Soln] 2.5 mg NEB QIDRT PRN 12/10/15 [History] Albuterol/Ipratropium [DuoNeb 3.0-0.5 MG/3 ML] 3 ml NEB Q6HRRT PRN 12/10/15 [ History] Bisacodyl [Dulcolax] 1 supp RECTAL DAILY PRN 12/10/15 [History] Clopidogrel [Plavix] 75 mg PO DAILY 12/10/15 [History] Denosumab [Prolia] 60 mg SUBCUT ASDIRECTED 12/10/15 [History] Docusate Sodium [Colace] 100 mg PO BID 12/10/15 [History] Esomeprazole [NexIUM] 40 mg PO DAILY 12/10/15 [History] Furosemide 40 mg PO DAILY 12/10/15 [History] Gabapentin [Neurontin] 600 mg PO BEDTIME 12/10/15 [History] Lactulose 15 ml PO BID PRN 12/10/15 [History] Mag Hydrox/Al Hydrox/Simeth [Gelusil Tablet Chewable] 2 each PO TID PRN [History] Magnesium Hydroxide [Milk of Magnesia] 15 ml PO TID PRN 12/10/15 [History] Nitroglycerin [Nitrostat] 0.4 mg SL Q5M PRN 12/10/15 [History] Rivaroxaban [Xarelto] 15 mg PO 1800 12/10/15 [History] Simethicone 125 mg PO QID PRN 12/10/15 [History] atorvaSTATin [Lipitor] 40 mg PO BEDTIME 12/10/15 [History] Aspirin [Ecotrin] 81 mg PO DAILY 10/08/17 [History] Doxazosin Mesylate [Cardura] 2 mg PO DAILY 10/08/17 [History] Hydrocodone/Acetaminophen [Hydrocodon-Acetaminophen 5-325] 0.5 tab PO TID PRN [History] Isosorbide Mononitrate [Imdur] 30 mg PO DAILY 10/08/17 [History] Melatonin 5 - 10 mg PO BEDTIME 10/08/17 [History] Metoprolol Succinate [Toprol XL] 25 mg PO DAILY 10/08/17 [History] Multivit-Min/FA/Lycopene/Lut [Sentry Senior Tablet] 1 tab PO DAILY 10/08/17 [ History] Ondansetron 4 mg PO Q8H PRN 10/08/17 [History] Potassium Chloride [K-Tab ER] 10 meq PO DAILY 10/08/17 [History] Past Medical History HEENT History: Reports: Hard of Hearing Other HEENT History: chronic nasal congestion Cardiovascular History: Reports: Afib, Heart Failure, Hypertension, [place] Respiratory History: Reports: Other (See Below) Other Respiratory History: uses o2 at night at home/ Gastrointestinal History: Reports: Chronic Constipation Genitourinary History: Reports: Chronic Renal Insuffiency, Urinary Incontinence Other Genitourinary History: CKD stage 3 Musculoskeletal History: Reports: Arthritis Other Neuro History: / Endocrine/Metabolic History: Reports: Diabetes, Type II Oncologic (Cancer) History: Reports: Prostate Other Dermatologic History: / - Past Surgical History Cardiovascular Surgical History: Reports: Coronary Artery Stent Respiratory Surgical History: Reports: None Social & Family History - Family History Family Medical History: Noncontributory Cardiac: Reports: CAD (mother and father) GI: Reports: None - Tobacco Use Smoking Status *Q: Never Smoker Second Hand Smoke Exposure: No - Caffeine Use Caffeine Use: Reports: Coffee, Soda, Tea - Alcohol Use Days Per Week of Alcohol Use: 0 Number of Drinks Per Day: 0 Total Drinks Per Week: 0 - Recreational Drug Use Recreational Drug Use: No Drug Use in Last 12 Months: No - Living Situation & Occupation Living situation: Reports: Assisted Living Occupation: Retired H&P Review of Systems - Review of Systems: Review Of Systems: See Below General: Reports: Fever, Chills, Malaise, Weakness, Fatigue HEENT: Reports: Hearing Changes. Denies: Dysphasia, Ear Pain, Headaches, Rhinitis, Sore Throat Pulmonary: Denies: Shortness of Breath, Wheezing, Pleuritic Chest Pain, Cough, Sputum Cardiovascular: Reports: Edema (chronic). Denies: Chest Pain, Palpitations, Dyspnea on Exertion, Orthopnea, Lightheadedness Gastrointestinal: Reports: Abdominal Pain. Denies: Black Stool, Bloody Stool, Constipation, Diarrhea, Decreased Appetite, Difficulty Swallowing, Hematemesis, Hematochezia, Nausea, Vomiting Genitourinary: Denies: Dysuria, Burning, Pain Musculoskeletal: Denies: Back Pain, Joint Pain, Joint Swelling Skin: Reports: No Symptoms Psychiatric: Reports: No Symptoms Neurological: Denies: Headache, Numbness, Tingling Hematologic/Lymphatic: Reports: No Symptoms Immunologic: Reports: No Symptoms Exam - Exam Exam: See Below - Vital Signs Vital Signs: Last Vital Signs Temp 37.6 C 10/09/17 11:00 Pulse 89 10/09/17 11:00 Resp 18 10/09/17 11:00 BP 90/43 L 10/09/17 11:00 Pulse Ox 94 L 10/09/17 11:30 Weight: 93.61 kg - Exam Physical Exam Comments:: GENERAL: Elderly white male lying in hospital bed in no acute distress. HEENT: Normocephalic, atraumatic. Mild icterus. Nares patent without discharge. Mucous membranes mildly dry, posterior pharynx unremarkable. NECK: Supple, no masses. CV: Irregular, no murmurs, rubs, or gallops. 2+ radial pulses. PULMONARY: Normal effort, clear to auscultation bilaterally, no wheezes, rales, or rhonchi. ABDOMEN: Positive bowel sounds, soft, mild tenderness to deep palpation in RUQ, nondistended. EXTREMITIES: Ankle edema, no cyanosis or clubbing. MUSCULOSKELETAL: Moves all extremities well. NEUROLOGICAL: No obvious deficits. DERMATOLOGIC: No rashes or suspicious lesions in exposed areas. PSYCHIATRIC: Alert, interactive, appropriate affect. Hard of hearing. - Patient Data Lab Results Last 24 hrs: Laboratory Results - last 24 hr 10/08/17 10/08/17 10/08/17 Range/Units 16:40 16:40 17:05 WBC 9.3 (5.0-10.0) 10^3/uL RBC 4.39 L (4.50-6.00) 10^6/uL Hgb 12.9 L (13.0-17.0) g/dL Hct 40.7 (40.0-52.0) % MCV 92.7 H (82.0-92.0) fL MCH 29.3 (27.0-31.0) pg MCHC 31.7 L (32.0-36.0) g/dL RDW 13.5 (11.5-14.5) % Plt Count 160 (150-300) 10^3/uL MPV 7.4 (7.4-10.4) fL Neut % (Auto) 85.5 H (50.0-70.0) % Lymph % (Auto) 6.5 L (20.0-40.0) % [place] % (Auto) 6.2 (2.0-8.0) % Eos % (Auto) 1.7 (1.0-3.0) % Baso % (Auto) 0.1 (0.0-1.0) % Neut # (Auto) 7.9 H (2.5-7.0) 10^3/uL Lymph # (Auto) 0.6 L (1.0-4.0) 10^3/uL [place] # (Auto) 0.6 (0.1-0.8) 10^3/uL Eos # (Auto) 0.2 (0.1-0.3) 10^3/uL Baso # (Auto) 0.0 (0.0-0.1) 10^3/uL Sodium 145 (136-145) mmol/L Potassium 4.5 (3.3-5.3) mmol/L Chloride 102 (98-115) mmol/L Carbon Dioxide 25.7 (21.0-32.0) mmol/L BUN 31 H (6-25) mg/dL Creatinine 1.32 H (0.51-1.17) mg/dL Est Cr Clr Drug Dosing 44.09 mL/min Estimated GFR (MDRD) 51 mL/min Glucose 130 H (70-110) mg/dL Lactic Acid 2.2 H (0.4-2.0) mmol/L Calcium 10.2 (8.7-10.3) mg/dL Total Bilirubin 2.4 H (0.2-1.0) mg/dL AST 744 H (15-37) U/L ALT 664 H (12-78) U/L Alkaline Phosphatase 342 H (46-116) IU/L Total Protein 6.9 (6.4-8.2) g/dL Albumin 3.44 (3.00-4.80) g/dL Specimen Type Urine Color (YELLOW) Urine Appearance (CLEAR) Urine pH (5.0-9.0) Ur Specific [place] (1.005-1.030) Urine Protein (NEGATIVE) mg/dL Urine Glucose (UA) (NEGATIVE) mg/dL Urine Ketones (NEGATIVE) mg/dL Urine Occult Blood (NEGATIVE) Urine Nitrite (NEGATIVE) Urine Bilirubin (NEGATIVE) Urine Urobilinogen (0.2-1.0) E.U./dL Ur Leukocyte Esterase (NEGATIVE) Urine RBC /HPF Urine WBC /HPF Ur Epithelial Cells /LPF Urine Bacteria (NONE TO FEW) /HPF Hyaline Casts (NEGATIVE) /LPF Urine Mucus (NEGATIVE) /LPF 10/08/17 10/09/1718 Range/Units 17:45 09:25 09:25 WBC 8.2 (5.0-10.0) 10^3/uL RBC 4.04 L (4.50-6.00) 10^6/uL Hgb 12.3 L (13.0-17.0) g/dL Hct 37.2 L (40.0-52.0) % MCV 92.0 (82.0-92.0) fL MCH 30.3 (27.0-31.0) pg MCHC 32.9 (32.0-36.0) g/dL RDW 13.6 (11.5-14.5) % Plt Count 146 L (150-300) 10^3/uL MPV 7.6 (7.4-10.4) fL Neut % (Auto) 92.4 H (50.0-70.0) % Lymph % (Auto) 3.5 L (20.0-40.0) % [place] % (Auto) 3.7 (2.0-8.0) % Eos % (Auto) 0.4 L (1.0-3.0) % Baso % (Auto) 0.0 (0.0-1.0) % Neut # (Auto) 7.6 H (2.5-7.0) 10^3/uL Lymph # (Auto) 0.3 L (1.0-4.0) 10^3/uL [place] # (Auto) 0.3 (0.1-0.8) 10^3/uL Eos # (Auto) 0.0 L (0.1-0.3) 10^3/uL Baso # (Auto) 0.0 (0.0-0.1) 10^3/uL Sodium 138 (136-145) mmol/L Potassium 4.0 (3.3-5.3) mmol/L Chloride 103 (98-115) mmol/L Carbon Dioxide 25.9 (21.0-32.0) mmol/L BUN 29 H (6-25) mg/dL Creatinine 1.43 H (0.51-1.17) mg/dL Est Cr Clr Drug Dosing 40.70 mL/min Estimated GFR (MDRD) 47 mL/min Glucose 190 H (70-110) mg/dL Lactic Acid (0.4-2.0) mmol/L Calcium 9.4 (8.7-10.3) mg/dL Total Bilirubin 2.9 H (0.2-1.0) mg/dL AST 424 H (15-37) U/L ALT 529 H (12-78) U/L Alkaline Phosphatase 321 H (46-116) IU/L Total Protein 5.9 L (6.4-8.2) g/dL Albumin 2.82 L (3.00-4.80) g/dL Specimen Type Urincc Urine Color Yellow (YELLOW) Urine Appearance Slightly cloudy H (CLEAR) Urine pH 6.0 (5.0-9.0) Ur Specific [place] 1.015 (1.005-1.030) Urine Protein Negative (NEGATIVE) mg/dL Urine Glucose (UA) Negative (NEGATIVE) mg/dL Urine Ketones Negative (NEGATIVE) mg/dL Urine Occult Blood Trace-intact H (NEGATIVE) Urine Nitrite Negative (NEGATIVE) Urine Bilirubin Negative (NEGATIVE) Urine Urobilinogen 1.0 (0.2-1.0) E.U./dL Ur Leukocyte Esterase Negative (NEGATIVE) Urine RBC 5-10 H /HPF Urine WBC 0-5 /HPF Ur Epithelial Cells Rare /LPF Urine Bacteria Occasional (NONE TO FEW) /HPF Hyaline Casts Few H (NEGATIVE) /LPF Urine Mucus Few H (NEGATIVE) /LPF 10/09/17 Range/Units 09:25 WBC (5.0-10.0) 10^3/uL RBC (4.50-6.00) 10^6/uL Hgb (13.0-17.0) g/dL Hct (40.0-52.0) % MCV (82.0-92.0) fL MCH (27.0-31.0) pg MCHC (32.0-36.0) g/dL RDW (11.5-14.5) % Plt Count (150-300) 10^3/uL MPV (7.4-10.4) fL Neut % (Auto) (50.0-70.0) % Lymph % (Auto) (20.0-40.0) % [place] % (Auto) (2.0-8.0) % Eos % (Auto) (1.0-3.0) % Baso % (Auto) (0.0-1.0) % Neut # (Auto) (2.5-7.0) 10^3/uL Lymph # (Auto) (1.0-4.0) 10^3/uL [place] # (Auto) (0.1-0.8) 10^3/uL Eos # (Auto) (0.1-0.3) 10^3/uL Baso # (Auto) (0.0-0.1) 10^3/uL Sodium (136-145) mmol/L Potassium (3.3-5.3) mmol/L Chloride (98-115) mmol/L Carbon Dioxide (21.0-32.0) mmol/L BUN (6-25) mg/dL Creatinine (0.51-1.17) mg/dL Est Cr Clr Drug Dosing mL/min Estimated GFR (MDRD) mL/min Glucose (70-110) mg/dL Lactic Acid 2.2 H (0.4-2.0) mmol/L Calcium (8.7-10.3) mg/dL Total Bilirubin (0.2-1.0) mg/dL AST (15-37) U/L ALT (12-78) U/L Alkaline Phosphatase (46-116) IU/L Total Protein (6.4-8.2) g/dL Albumin (3.00-4.80) g/dL Specimen Type Urine Color (YELLOW) Urine Appearance (CLEAR) Urine pH (5.0-9.0) Ur Specific [place] (1.005-1.030) Urine Protein (NEGATIVE) mg/dL Urine Glucose (UA) (NEGATIVE) mg/dL Urine Ketones (NEGATIVE) mg/dL Urine Occult Blood (NEGATIVE) Urine Nitrite (NEGATIVE) Urine Bilirubin (NEGATIVE) Urine Urobilinogen (0.2-1.0) E.U./dL Ur Leukocyte Esterase (NEGATIVE) Urine RBC /HPF Urine WBC /HPF Ur Epithelial Cells /LPF Urine Bacteria (NONE TO FEW) /HPF Hyaline Casts (NEGATIVE) /LPF Urine Mucus (NEGATIVE) /LPF Result Diagrams: 10/09/17 09:25 10/09/17 09:25 Matt Results Last 24 hrs: Microbiology 10/08/17 17:05 Aerobic Blood Culture - Preliminary Blood - Venous - Lab Draw 10/08/17 16:40 Anaerobic Blood Culture - Preliminary Blood - Venous 10/08/17 17:30 Influenza Type A Antigen Screen - Final Nasal Aspirate, Unspecified NEGATIVE INFLUENZA A VIRUS AG Influenza Type B Antigen Screen - Final NEGATIVE INFLUENZA B VIRUS AG Problem List Initiated/Reviewed/Updated: Yes Orders Last 24hrs: Active Orders 24 hr Category Date Time Status Patient Status [ADT] Routine ADT 10/08/17 18:20 Ordered Oxygen Therapy [RC] PRN Care 10/08/17 18:20 Active VTE/DVT Education [RC] PER UNIT ROUTINE Care 10/08/17 18:20 Active Vital Signs [RC] 0300,0700,1100,1500,1900,2300 Care 10/08/17 18:20 Active Heart Healthy Diet [DIET] Diet 10/09/17 Breakfast Active AEROBIC IDENT [MREF] Stat Lab 10/08/17 16:40 Received AEROBIC IDENT [MREF] Stat Lab 10/08/17 17:05 Received CBC WITH AUTO DIFF [HEME] AM Lab 10/10/17 05:11 Ordered COMPREHENSIVE METABOLIC PN,CMP [CHEM] AM Lab 10/10/17 05:11 Ordered CULTURE BLOOD [BC] Stat Lab 10/08/17 16:40 Results CULTURE BLOOD [BC] Stat Lab 10/08/17 17:05 Results CULTURE SPUTUM + SMEAR [RM] Routine Lab 10/09/17 08:43 Ordered LACTIC ACID [CHEM] AM Lab 10/10/17 05:11 Ordered UA W/MICROSCOPIC [URIN] Stat Lab 10/08/17 17:45 Ordered Acetaminophen/HYDROcodone [[place] 325-5 MG] Med 10/08/17 19:50 Active 0.5 tab PO TID PRN Albuterol [Proventil Neb Soln] Med 10/08/17 19:50 Active 2.5 mg NEB QIDRT PRN Albuterol/Ipratropium [DuoNeb 3.0-0.5 MG/3 ML] Med 10/08/17 19:50 Active 3 ml NEB Q6HRRT PRN Alum Hydrox/Mag Hydrox/Simeth [Mag-Al Plus] Med 10/09/17 09:00 Active 30 ml PO TID PRN Bisacodyl [Dulcolax] Med 10/08/17 19:50 Active 10 mg RECTAL DAILY PRN Clopidogrel [Plavix] Med 10/09/17 09:00 Active 75 mg PO DAILY Docusate Sodium [Colace] Med 10/08/17 21:00 Active 100 mg PO BID Doxazosin [Cardura] Med 10/10/17 09:00 Active 2 mg PO DAILY FA/Lycopene/Lut/MV,Ca,Iron,Min [Centrum] Med 10/09/17 09:00 Active 1 tab PO DAILY Furosemide [Lasix] Med 10/09/17 09:00 Hold 40 mg PO DAILY Gabapentin [Neurontin] Med 10/08/17 21:00 Active 600 mg PO BEDTIME Isosorbide Mononitrate [Imdur] Med 10/09/17 09:00 Active 30 mg PO DAILY Lactulose [Cephulac] Med 10/09/17 09:00 Active 10 gm PO BID PRN Magnesium Hydroxide [Milk of Magnesia] Med 10/08/17 19:50 Active 15 ml PO TID PRN Metoprolol Succinate [Toprol XL] Med 10/09/17 09:00 Active 25 mg PO DAILY Nitroglycerin [Nitrostat] Med 10/08/17 19:50 Active 0.4 mg SL Q5M PRN Omeprazole Med 10/09/17 09:00 Active 20 mg PO ACBREAKFAST Ondansetron [Zofran ODT] Med 10/09/17 09:00 Active 4 mg PO Q8H PRN Piperacillin/Tazobactam/Dext [Zosyn in Dextrose Iso- Med 10/09/17 11:00 Active Osmotic 3.375 GM] 50 ml IV Q6HR Potassium Chloride [Klor-Con 10] Med 10/09/17 09:00 Active 10 meq PO DAILY Rivaroxaban [Xarelto] Med 10/09/17 18:00 Active 15 mg PO DAILY@1800 Simethicone Med 10/09/17 09:00 Active 160 mg PO QID PRN Sodium Chloride 0.9% [Normal Saline] 1,000 ml Med 10/09/17 10:30 Active IV ASDIRECTED Sodium Chloride 0.9% [Syrex Flush] Med 10/08/17 16:45 Active 5 ml FLUSH Q8HR PRN Blood Culture x2 Reflex Set [OM.PC] Stat Oth 10/08/17 16:45 Ordered Peripheral IV Insertion Adult [OM.PC] Routine Oth 10/08/17 16:45 Ordered Resuscitation Status Routine Resus Stat 10/08/17 18:20 Ordered Medication Orders Hydrocodone Bitart/Acetaminophen ([place] 325-5 Mg) 0.5 tab PO TID PRN PRN Reason: Pain Last Admin: 10/09/17 06:33 Dose: 0.5 tab Al Hydroxide/Mg Hydroxide (Mag-Al Plus) 30 ml PO TID PRN PRN Reason: Gas Albuterol (Proventil Neb Soln) 2.5 mg NEB QIDRT PRN PRN Reason: Wheezing Albuterol/Ipratropium (Duoneb 3.0-0.5 Mg/3 Ml) 3 ml NEB Q6HRRT PRN PRN Reason: Wheezing Last Admin: 10/09/17 07:01 Dose: 3 ml Admin: 10/08/17 21:09 Dose: 3 ml Bisacodyl (Dulcolax) 10 mg RECTAL DAILY PRN PRN Reason: Constipation Clopidogrel Bisulfate (Plavix) 75 mg PO DAILY [facility] Last Admin: 10/09/17 08:28 Dose: 75 mg Docusate Sodium (Colace) 100 mg PO BID [facility] Last Admin: 10/09/17 08:29 Dose: 100 mg Admin: 10/08/17 21:00 Dose: 100 mg Doxazosin Mesylate (Cardura) 2 mg PO DAILY [facility] Furosemide (Lasix) 40 mg PO DAILY [facility] Last Admin: 10/09/17 08:29 Dose: 40 mg Gabapentin (Neurontin) 600 mg PO BEDTIME [facility] Last Admin: 10/08/17 21:00 Dose: 600 mg Piperacillin/Tazobactam/Dextrose (Zosyn In Dextrose Iso-Osmotic 3.375 Gm) 50 mls @ 100 mls/hr IV Q6HR [facility] Last Admin: 10/09/17 11:22 Dose: 100 mls/hr Sodium Chloride (Normal Saline) 1,000 mls @ 100 mls/hr IV ASDIRECTED [facility] Stop: 10/09/17 20:29 Last Admin: 10/09/17 11:22 Dose: 100 mls/hr Isosorbide Mononitrate (Imdur) 30 mg PO DAILY [facility] Last Admin: 10/09/17 08:29 Dose: 30 mg Lactulose (Cephulac) 10 gm PO BID PRN PRN Reason: Constipation Magnesium Hydroxide (Milk Of Magnesia) 15 ml PO TID PRN PRN Reason: Constipation Metoprolol Succinate (Toprol Xl) 25 mg PO DAILY [facility] Last Admin: 10/09/17 08:28 Dose: 25 mg Multivitamins/Minerals (Centrum) 1 tab PO DAILY [facility] Last Admin: 10/09/17 09:12 Dose: 1 tab Nitroglycerin (Nitrostat) 0.4 mg SL Q5M PRN PRN Reason: Chest Pain Omeprazole (Omeprazole) 20 mg PO ACBREAKFAST [facility] Last Admin: 10/09/17 09:12 Dose: 20 mg Ondansetron HCl (Zofran Odt) 4 mg PO Q8H PRN PRN Reason: Nausea Potassium Chloride (Klor-Con 10) 10 meq PO DAILY [facility] Last Admin: 10/09/17 08:29 Dose: 10 meq Rivaroxaban (Xarelto) 15 mg PO DAILY@1800 GUERO Simethicone (Simethicone) 160 mg PO QID PRN PRN Reason: Gas Sodium Chloride (Syrex Flush) 5 ml FLUSH Q8HR PRN PRN Reason: Keep Vein Open Last Admin: 10/08/17 18:41 Dose: 5 ml Assessment/Plan Comment:: 86yoM with history notable for CAD, COPD, and cholelithiasis, who presented to the ED with fever and generalized malaise initially thought to have pneumonia in the setting of fever, neutrophilia, and CXR with possible RLL infiltrate and given ceftriaxone and azithromycin in the ED and admitted for monitoring given his age and comorbidities. Overnight, he had recurrent measured fevers >38 degrees Celsius, but otherwise remain hemodynamically stable and notably no respiratory distress and only required his chronic baseline oxygen of 2lpm via nasal cannula, which he uses when sleeping. This morning on rounds, clinical evaluation revealed no pulmonary distress, but with RUQ pain on exam. Laboratory review was notable for transaminitis, elevated bilirubin and alkaline phosphatase, and neutrophilia. I was notified that blood culture was positive for gram positive cocci in pairs. Antibiotic coverage was expanded to Zosyn. Anticoagulation was held and he was made NPO. Ultrasound was not readily available, so CT abdomen/pelvis was obtained showing cholelithiasis. Bedside ultrasound was later able to be performed and the radiology ct technologist reported to me that there are multiple gallstones and evidence of 7.6mm stone in the common hepatic duct. Called [facility] call and discussed with network security consultant hospitalist (and admitting accepting physician, Dr. 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 for MRCP and possible ERCP. Admission diagnoses: 1. Fever 2. Neutrophilia 3. Possible RLL infiltrate 4. CAD 5. Chronic atrial fibrillation 6. COPD 7. BPH Discharge diagnoses: 1. Cholangitis 2. Retained common hepatic duct stone 3. Bacteremia 4. Possible RLL pneumonia 5. CAD 6. Chronic atrial fibrillation 7. COPD 8. BPH
[2017-10-09] MEDS: Rivaroxaban 10 MG Tab PO SCH ×2 (17:26→17:50)
[2017-10-09 19:00] VITALS: BP 133/67
[2017-10-10] MEDS ORDERED: Doxazosin 2 MG Tab PO SCH (09:00)
== END 2017-10-09 19:30 | DRG 194 ==
LOC: KA.ED 16:03 → KA.MS 18:20
PROVIDERS: ADMIT Physician Assistant Surgical; ATTEND Family Medicine
DX: J18.1 Lobar pneumonia, unspecified organism (principal); I13.0 Hypertensive heart and chronic kidney disease with heart failure and stage 1 through stage 4 chronic kidney disease, or unspecified chronic kidney disease; K83.0 Cholangitis; J44.0 Chronic obstructive pulmonary disease with (acute) lower respiratory infection; I50.9 Heart failure, unspecified; I25.2 Old myocardial infarction; R78.81 Bacteremia; K80.60 Calculus of gallbladder and bile duct with cholecystitis, unspecified, without obstruction; I48.91 Unspecified atrial fibrillation; E11.22 Type 2 diabetes mellitus with diabetic chronic kidney disease; N18.3 Chronic kidney disease, stage 3 (moderate); I25.10 Atherosclerotic heart disease of native coronary artery without angina pectoris; J18.9 Pneumonia, unspecified organism; N40.0 Benign prostatic hyperplasia without lower urinary tract symptoms; Z88.8 Allergy status to other drugs, medicaments and biological substances; Z95.5 Presence of coronary angioplasty implant and graft; Z79.899 Other long term (current) drug therapy; Z85.46 Personal history of malignant neoplasm of prostate
CPT/HCPCS: 36415; 71046; 74176; 76705; 80053; 81001; 83605; 85025; 87040; 87077; 87186; 87804; 94640; 94760; 96361; 96374; 99285; A9270-GY; J0696; J2543; J7030

== ENCOUNTER 2017-10-16 11:25 | Emergency (ER) | payer MEDICARE, OTHER ==
[2017-10-16] MEDS ORDERED: Sodium Chloride 0.9% 1,000 ML IV ONE (11:45)
--- NOTE | 2017-10-16 11:57 | EDM.PDOC ---
ED HPI GENERAL MEDICAL PROBLEM - General Stated Complaint: gi bleed Time Seen by Provider: 10/16/17 11:38 Source of Information: Reports: Patient, Provider History Limitations: Reports: No Limitations - History of Present Illness INITIAL COMMENTS - FREE TEXT/NARRATIVE: Patient presents with rectal bleeding, from [place]. He is 4 days s/p lap ari and 5-6 days s/p ERCP. He spent nearly a week at [facility] and was discharged to [facility] yesterday. About 2 hours ago profuse rectal bleeding was noted and he was sent to ER. The staff called [facility] and Dr. Moe recommended he be brought to ER and then she called me with [facility]. Hg 3 days ago was 11.2. He has A FIB and was restarted on his Xarelto at discharge. - Related Data Allergies Allergy/AdvReac Type Severity Reaction Status Date / Time corn Allergy Cough Verified 10/16/17 12:08 tramadol Allergy Diarrhea Verified 10/16/17 12:08 Home Meds: Home Meds Acetaminophen [Tylenol] 325 - 650 mg PO TID PRN 12/10/15 [History] Albuterol [Proventil Neb Soln] 2.5 mg NEB QIDRT PRN 12/10/15 [History] Albuterol/Ipratropium [DuoNeb 3.0-0.5 MG/3 ML] 3 ml NEB Q6HRRT PRN 12/10/15 [ History] Bisacodyl [Dulcolax] 1 supp RECTAL DAILY PRN 12/10/15 [History] Denosumab [Prolia] 60 mg SUBCUT ASDIRECTED 12/10/15 [History] Docusate Sodium [Colace] 100 mg PO BID 12/10/15 [History] Esomeprazole [NexIUM] 40 mg PO DAILY 12/10/15 [History] Gabapentin [Neurontin] 600 mg PO BEDTIME 12/10/15 [History] Lactulose 15 ml PO BID PRN 12/10/15 [History] Mag Hydrox/Al Hydrox/Simeth [Gelusil Tablet Chewable] 2 each PO TID PRN [History] Magnesium Hydroxide [Milk of Magnesia] 15 ml PO TID PRN 12/10/15 [History] Nitroglycerin [Nitrostat] 0.4 mg SL Q5M PRN 12/10/15 [History] Simethicone 125 mg PO QID PRN 12/10/15 [History] atorvaSTATin [Lipitor] 40 mg PO BEDTIME 12/10/15 [History] Doxazosin Mesylate [Cardura] 2 mg PO DAILY 10/08/17 [History] Hydrocodone/Acetaminophen [Hydrocodon-Acetaminophen 5-325] 0.5 tab PO TID PRN [History] Isosorbide Mononitrate [Imdur] 30 mg PO DAILY 10/08/17 [History] Melatonin 5 - 10 mg PO BEDTIME 10/08/17 [History] Metoprolol Succinate [Toprol XL] 25 mg PO DAILY 10/08/17 [History] Multivit-Min/FA/Lycopene/Lut [Sentry Senior Tablet] 1 tab PO DAILY 10/08/17 [ History] Ondansetron 4 mg PO Q8H PRN 10/08/17 [History] Potassium Chloride [K-Tab ER] 10 meq PO DAILY 10/08/17 [History] Past Medical History HEENT History: Reports: Hard of Hearing Other HEENT History: chronic nasal congestion Cardiovascular History: Reports: Afib, Heart Failure, Hypertension, AR Respiratory History: Reports: Other (See Below) Other Respiratory History: uses o2 at night at home/ Gastrointestinal History: Reports: Chronic Constipation Genitourinary History: Reports: Chronic Renal Insuffiency, Urinary Incontinence Other Genitourinary History: CKD stage 3 Musculoskeletal History: Reports: Arthritis Other Neuro History: / Endocrine/Metabolic History: Reports: Diabetes, Type II Oncologic (Cancer) History: Reports: Prostate Other Dermatologic History: / - Past Surgical History Cardiovascular Surgical History: Reports: Coronary Artery Stent Respiratory Surgical History: Reports: None Social & Family History - Family History Family Medical History: Unobtainable - Caffeine Use Caffeine Use: Reports: Coffee, Soda, Tea - Living Situation & Occupation Living situation: Reports: Assisted Living Occupation: Retired ED ROS GENERAL - Review of Systems Review Of Systems: See Below Constitutional: Reports: Weakness HEENT: Reports: No Symptoms Respiratory: Reports: No Symptoms. Denies: Shortness of Breath, Hemoptysis Cardiovascular: Reports: No Symptoms. Denies: Chest Pain, Syncope Endocrine: Reports: No Symptoms GI/Abdominal: Reports: Bloody Stool. Denies: Vomiting : Reports: No Symptoms Musculoskeletal: Reports: No Symptoms Skin: Reports: Pallor Neurological: Denies: Confusion, Syncope Psychiatric: Denies: Agitation, Anxiety, Confusion Hematologic/Lymphatic: Reports: Easy Bleeding (on Xarelto) ED EXAM, GI/ABD - Physical Exam Exam: See Below Exam Limited By: No Limitations General Appearance: Alert, WD/WN, No Apparent Distress Eyes: Bilateral: Normal Appearance, EOMI Ears: Normal External Exam, Hearing Grossly Normal Nose: Normal Inspection, No Blood Throat/Mouth: Normal Inspection, Normal Lips, Normal Voice, No Airway Compromise Head: Atraumatic, Normocephalic Neck: Normal Inspection, Supple, Full Range of Motion Respiratory/Chest: No Respiratory Distress, Lungs Clear, Normal Breath Sounds Cardiovascular: Normal Peripheral Pulses, Irregularly Irregular GI/Abdominal Exam: Normal Bowel Sounds, Soft, Non-Tender, Other (recent surgical wounds not bleeding) Rectal (Males) Exam: Normal Rectal Tone, Prostate Normal, Black Stool (black/ dark red), Bloody Stool, Other (On withdrawing my digit after LINO a significant amount of dark red blood ran out and it appears that his rectal tone is retaining at least some blood.) Extremities: Normal Inspection, Normal Range of Motion Neurological: Alert, Oriented, Normal Cognition, No Motor/Sensory Deficits Psychiatric: Normal Affect, Normal Mood Skin Exam: Warm, Dry, Intact, No Rash, Pallor Course - Vital Signs Last Recorded V/S: Last Vital Signs Temp 98.9 F 10/16/17 12:35 Pulse 102 H 10/16/17 12:35 Resp 20 10/16/17 12:35 BP 103/54 L 10/16/17 12:35 Pulse Ox 95 10/16/17 12:35 - Orders/Labs/Meds Orders: Active Orders 24 hr Category Date Time Status TYPE AND SCREEN [BBK] Stat Lab 10/16/17 11:45 Ordered Sodium Chloride 0.45% 1,000 ml Med 10/16/17 12:30 Ordered IV ASDIRECTED Medication Orders Sodium Chloride (Sodium Chloride 0.45%) 1,000 mls @ 1,000 mls/hr IV ASDIRECTED GUERO Last Admin: 10/16/17 12:44 Dose: 1,000 mls/hr Labs: Laboratory Tests 10/16/17 10/16/17 10/16/17 Range/Units 11:45 11:45 11:45 WBC 8.7 (5.0-10.0) 10^3/uL RBC 3.47 L (4.50-6.00) 10^6/uL Hgb 11.0 L (13.0-17.0) g/dL Hct 32.1 L (40.0-52.0) % MCV 92.7 H (82.0-92.0) fL MCH 31.7 H (27.0-31.0) pg MCHC 34.2 (32.0-36.0) g/dL RDW 13.8 (11.5-14.5) % Plt Count 235 D (150-300) 10^3/uL MPV 7.9 (7.4-10.4) fL Neut % (Auto) 78.6 H (50.0-70.0) % Lymph % (Auto) 11.0 L (20.0-40.0) % Dunn % (Auto) 7.3 (2.0-8.0) % Eos % (Auto) 2.9 (1.0-3.0) % Baso % (Auto) 0.2 (0.0-1.0) % Neut # (Auto) 6.8 (2.5-7.0) 10^3/uL Lymph # (Auto) 1.0 (1.0-4.0) 10^3/uL Dunn # (Auto) 0.6 (0.1-0.8) 10^3/uL Eos # (Auto) 0.3 (0.1-0.3) 10^3/uL Baso # (Auto) 0.0 (0.0-0.1) 10^3/uL PT 12.7 H (8.9-11.4) SEC INR 1.3 H (0.9-1.1) APTT 22.5 (20.8-31.2) SEC Sodium 151 H D (136-145) mmol/L Potassium 4.4 (3.3-5.3) mmol/L Chloride 117 H D (98-115) mmol/L Carbon Dioxide 24.0 (21.0-32.0) mmol/L BUN 24 (6-25) mg/dL Creatinine 1.06 (0.51-1.17) mg/dL Est Cr Clr Drug Dosing TNP Estimated GFR (MDRD) > 60 mL/min Glucose 144 H (70-110) mg/dL Calcium 9.8 (8.7-10.3) mg/dL Total Bilirubin 0.6 (0.2-1.0) mg/dL AST 42 H (15-37) U/L ALT 93 H (12-78) U/L Alkaline Phosphatase 166 H (46-116) IU/L Total Protein 5.4 L (6.4-8.2) g/dL Albumin 2.53 L (3.00-4.80) g/dL Meds: Medications Generic Name Dose Route Start Last Admin Trade Name Freq PRN Reason Stop Dose Admin Sodium Chloride 1,000 mls @ 1,000 mls/hr 10/16/17 12:30 10/16/17 12:44 Sodium Chloride 0.45% IV 1,000 mls/hr ASDIRECTED GUERO Administration Discontinued Medications Generic Name Dose Route Start Last Admin Trade Name Freq PRN Reason Stop Dose Admin Sodium Chloride 1,000 mls @ 999 mls/hr 10/16/17 11:45 10/16/17 11:58 Normal Saline IV 10/16/17 12:45 999 mls/hr .BOLUS ONE Administration - Re-Assessments/Exams Free Text/Narrative Re-Assessment/Exam: 10/16/17 12:07 Hg is 11.0, a slight drop but only two hours since bleeding started so expected. I called [facility] in [place] for transfer and am waiting for call back from [facility] 10[facility]16/17 [facility] [facility] but they want me to wait for a bed placement before I call for the ambulance and they will call back. We have a liter of NS running wide open through 20 ga IV and are starting a larger IV for additional fluids. This will be .5 NS since his sodium is elevated. 10/16/17 12:54 At discharge via EMS blood pressure was 103/54 vs 98/65 at presentation. A liter of NS is in and a second of 1/2 NS is running. Patient remained stable throughout ER course with no obvious deterioration. Departure - Departure Time of Disposition: 12:58 Disposition: DC/Tfer to Acute Hospital 02 Condition: Good Clinical Impression: GI bleeding Qualifiers: GI bleed type/associated pathology: unspecified gastrointestinal hemorrhage type Qualified Code(s): K92.2 - Gastrointestinal hemorrhage, unspecified - Discharge Information Referrals: Chanda Bailey MD [Primary Care Provider] - Forms: ED Department Discharge, Interfacility Transfer [facility] - My Orders Last 24 Hours: My Active Orders 10/16/17 11:45 TYPE AND SCREEN [BBK] Stat 10/16/17 12:30 Sodium Chloride 0.45% 1,000 ml IV ASDIRECTED - Assessment/Plan Last 24 Hours: My Active Orders 10/16/17 11:45 TYPE AND SCREEN [BBK] Stat 10/16/17 12:30 Sodium Chloride 0.45% 1,000 ml IV ASDIRECTED
[2017-10-16 12:06] LABS: CHLORIDE,CL 117 mmol/L (98-115); SODIUM,NA 151 mmol/L (136-145)
[2017-10-16] MEDS ORDERED: Sodium Chloride 0.45% 1,000 ML IV SCH (12:30)
[2017-10-16 12:37] VITALS: BP 103/54
== END 2017-10-16 12:55 ==
LOC: KA.ED 11:25
DX: K92.2 Gastrointestinal hemorrhage, unspecified (principal); I11.0 Hypertensive heart disease with heart failure; I50.9 Heart failure, unspecified; I25.2 Old myocardial infarction; E11.22 Type 2 diabetes mellitus with diabetic chronic kidney disease; N18.3 Chronic kidney disease, stage 3 (moderate); Z88.5 Allergy status to narcotic agent; Z91.018 Allergy to other foods; Z79.899 Other long term (current) drug therapy
CPT/HCPCS: 80053; 85025; 85610; 85730; 86850; 86900; 86901; 96360; 99285; J7030